=== PATIENT | male | born 1960 | race Caucasian/White ===

== ENCOUNTER 2017-11-17 06:14 | Inpatient (IN) | payer MEDICAID, SELFPAY ==
[2017-11-17] VITALS (16 sets, daily range): BP systolic 106–201; BP diastolic 55–130; PULSE 66–88; RESP 10–21; TEMP 35.9–36.7; O2SAT 97–100; BMI 18.9; BMI 17.2
--- NOTE | 2017-11-17 06:34 | EKG12_ITS ---
Test Reason : CP Blood Pressure : / mmHG Vent. Rate : 077 BPM Atrial Rate : 416 BPM P-R Int : 000 ms QRS Dur : 108 ms QT Int : 440 ms P-R-T Axes : 000 002 083 degrees QTc Int : 497 ms Atrial fibrillation with premature ventricular or aberrantly conducted complexes Voltage criteria for left ventricular hypertrophy ST & T wave abnormality, consider lateral ischemia Prolonged QT Abnormal ECG Confirmed by LOBITO CANTRELL, MARIA ISABEL ([id number]), news copy editor DEE BONILLA ([id number]) on 11/19/2017 4:03:51 PM Referred By: CLAYTON Confirmed By:MARIA ISABEL ROBIN MD
[2017-11-17] MEDS: Aspirin 81 MG TAB.CHEW 324 MG PO (06:38)
[2017-11-17] MEDS: 0.9% Normal Saline 1,000 ML 150 ML IV (06:43)
--- NOTE | 2017-11-17 06:45 | RAD_ITS ---
STUDY: X-RAY CHEST REASON FOR EXAM: Male, 56 years old. Chest pain TECHNIQUE: Single AP portable view of the chest. COMPARISON: December 08, 2015 FINDINGS: There is hyperinflation of the lungs consistent with chronic obstructive lung disease (COPD). There is no demonstrated pleural abnormality. There is moderate cardiac enlargement. There is a prosthetic cardiac valve most likely an aortic valve. Normal mediastinum and jon. Normal visualized pulmonary arteries. Normal visualized aortic arch and descending thoracic aorta. There is demineralization of the osseous structures. There is degenerative osteoarthritis of the bilateral shoulders. There is no demonstrated abnormality of the visualized soft tissue structures of the upper abdomen. RAD/Chest 1 View (Portable) IMPRESSION: Moderate cardiomegaly. COPD. Electronically Signed: Hernando Chavez MD at 7:45 EST Tel , Service support ,
--- NOTE | 2017-11-17 06:45 | EKG12_ITS ---
Test Reason : CP Blood Pressure : / mmHG Vent. Rate : 071 BPM Atrial Rate : 375 BPM P-R Int : 000 ms QRS Dur : 112 ms QT Int : 448 ms P-R-T Axes : 000 007 088 degrees QTc Int : 486 ms Atrial fibrillation Premature ventricular complexes Left ventricular hypertrophy with repolarization abnormality Prolonged QT Abnormal ECG Confirmed by LOBITO CANTRELL, MARIA ISABEL ([id number]), online editor DEE BONILLA ([id number]) on 11/19/2017 4:04:15 PM Referred By: CLAYTON Confirmed By:MARIA ISABEL ROBIN MD
[2017-11-17 06:50] LABS: Absolute Lymphocyte Count 2.67 X10^3/ul (0.83-4.51); Absolute Neutrophil Count 5.4 X10^3/uL (2.0-7.7); Basophil# 0.04 X10^3/uL; Basophil% 0.5 % (0-1); Eosinophil# 0.13 X10^3/uL; Eosinophils% 1.5 % (0-5); Hematocrit 44.1 % (40-54); Hemoglobin 14.9 g/dl (13.0-16.5); Lymphocyte # 2.67 X10^3/ul (4.0); Lymphocyte % 30.4 % (19-41); Mean Corp Hgb Conc 33.8 g/gl (32-36); Mean Corpuscular Hgb 32.4 pg (27.0-32.0); Mean Corpuscular Volume 95.9 fL (80-94); Mean Platelet Vol. 9.6 fl (6.2-12.0); Monocyte# 0.53 X10^3/uL; Neutrophil % 61.4 % (47-70); Platelet Count 312 K/mm3 (150-450); RBC Distribution Width CV 13.9 % (11.6-14.6); RBC Distribution Width SD 46.9 fl (35.1-43.9); White Blood Count 8.8 K/mm3 (4.4-11.0)
[2017-11-17 07:02] LABS: Anion Gap 8 (5-15); BUN 22 mg/dL (7-18); BUN/Creat Ratio 21.4 RATIO (10-20); Calcium,Total 8.9 mg/dL (8.5-10.1); Chloride 107 mmol/L (98-107); Creatinine, Serum 1.03 mg/dL (0.70-1.30); EST Glomerular Filtration Rate 79 mL/min (>60); Est Glom Filt Rate - Afr Amer 96 mL/min (>60); Estimated Creatinine Clearance 67.73 ml/min; Glucose 93 mg/dL (74-106); Potassium 4.2 mmol/L (3.5-5.1); Sodium Level 141 mmol/L (136-145)
--- NOTE | 2017-11-17 07:02 | ED.VISSUMM ---
- ER Visit Summary Date of Service: 11/17/17 Chief Complaint: Chest pain History of Present Illness: The patient is a 56 M presenting with 2 hours of nonpleuritic chest discomfort that woke him up from sleep. Feels like heaviness and pressure substernal, radiating to both upper extremities. Mild dyspnea, no associated nausea, lightheadedness, diaphoresis. History of an CO but has never had this discomfort before. He had a mitral valve repair or replacement in 2012, and was scheduled for a routine stress test 2 days from now, he thinks it will be the first he has had since then. He has a history of atrial fibrillation, he has never felt himself either in or out of it. He is on Xarelto for that, and takes aspirin which he has not taken yet today. He took Viagra last night less than 12 hours ago. Physical Examination: Hypertensive at 201/121, otherwise his vital signs are normal and his pulse ox is 100 on room air. He appears uncomfortable but in no acute distress. His heart is irregularly irregular without tachycardia. No audible murmur. Lungs are clear to auscultation, diminished throughout consistent with his COPD. No JVD. No pedal edema or calf tenderness. Equal bilateral 2+/4 radial pulses. Abdomen benign. There is a horizontal surgical scar in the supraumbilical area from a remote ex lap. Test Results: EKG shows rate controlled A. fib in the 70s with frequent PVCs, a normal axis, and [address] depression in V4 through V6. There is no reciprocal ST elevation. Chest x-ray with borderline cardiomegaly otherwise clear. Emergency Department Course and Treatment: Patient is high risk for coronary lesion due to a TAMAR score of 4 (5 if elevated cardiac markers), his EKG changes along with his history are concerning for unstable angina, possibly hypertensive emergency. I anticipate admission. Nitroglycerin not given since he recently took Viagra. Initially given hydralazine as a one-time dose, in addition to morphine, aspirin, and IV fluids. Checked out to oncoming emergency physician for final disposition and reevaluation. Treatment Plan: [] Disposition: [] Impression: Unstable angina This note was generated with [employer] dictation software. It may contain incorrect words, spelling, and punctuation that were not noted in review of the chart prior to signing <Kevin Snell - Last Filed: 11/17/17 07:08> - ER Visit Summary Addendum: This patient was checked out to me by Dr. Snell with labs pending. Test Results: CBC is normal. Chem-7 is remarkable for a BUN of 22. Initial troponin is 0.04. Chest x-ray shows cardiomegaly. Emergency Department Course and Treatment: Patient was given aspirin p.o. He received a dose of morphine with no relief. He was then given Dilaudid IV and is resting comfortably. Treatment Plan: The patient will be discussed with the hospitalist. He will be admitted for further evaluation and treatment. Disposition: Admitted in improved condition. Impression: 1. Unstable angina. 2. Coagulopathy on Xarelto. 3. TAMAR score 4. This note was generated with [employer] software. It may contain incorrect words, spelling, and punctuation that were not noted in review of the chart prior to signing <Audie Lee - Last Filed: 11/17/17 08:42> ED Disposition <Kevin Snell - Last Filed: 11/17/17 07:08> <Audie Lee - Last Filed: 11/17/17 08:42> - Plan for ED Patient: Chief Complaint: Chest Pain Referrals: Rian Metz MD [Primary Care Provider] -
--- NOTE | 2017-11-17 07:08 | ED.DCSUM_ITS ---
- ER Visit Summary Date of Service: 11/17/17 Chief Complaint: Chest pain History of Present Illness: The patient is a 56 M presenting with 2 hours of nonpleuritic chest discomfort that woke him up from sleep. Feels like heaviness and pressure substernal, radiating to both upper extremities. Mild dyspnea, no associated nausea, lightheadedness, diaphoresis. History of an [place] but has never had this discomfort before. He had a mitral valve repair or replacement in 2012, and was scheduled for a routine stress test 2 days from now , he thinks it will be the first he has had since then. He has a history of atrial fibrillation, he has never felt himself either in or out of it. He is on Xarelto for that, and takes aspirin which he has not taken yet today. He took Viagra last night less than 12 hours ago. Physical Examination: Hypertensive at 201/121, otherwise his vital signs are normal and his pulse ox is 100 on room air. He appears uncomfortable but in no acute distress. His heart is irregularly irregular without tachycardia. No audible murmur. Lungs are clear to auscultation, diminished throughout consistent with his COPD. No JVD. No pedal edema or calf tenderness. Equal bilateral 2+/4 radial pulses. Abdomen benign. There is a horizontal surgical scar in the supraumbilical area from a remote ex lap. Test Results: EKG shows rate controlled A. fib in the 70s with frequent PVCs, a normal axis, and [address] depression in V4 through V6. There is no reciprocal ST elevation. Chest x-ray with borderline cardiomegaly otherwise clear. Emergency Department Course and Treatment: Patient is high risk for coronary lesion due to a TAMAR score of 4 (5 if elevated cardiac markers), his EKG changes along with his history are concerning for unstable angina, possibly hypertensive emergency. I anticipate admission. Nitroglycerin not given since he recently took Viagra. Initially given hydralazine as a one-time dose, in addition to morphine, aspirin, and IV fluids. Checked out to oncoming emergency physician for final disposition and reevaluation. Treatment Plan: [] Disposition: [] Impression: Unstable angina This note was generated with [employer] dictation software. It may contain incorrect words, spelling, and punctuation that were not noted in review of the chart prior to signing <Kevin Snell - Last Filed: 11/17/17 07:08> - ER Visit Summary Addendum: This patient was checked out to me by Dr. Snell with labs pending. Test Results: CBC is normal. Chem-7 is remarkable for a BUN of 22. Initial troponin is 0.04. Chest x-ray shows cardiomegaly. Emergency Department Course and Treatment: Patient was given aspirin p.o. He received a dose of morphine with no relief. He was then given Dilaudid IV and is resting comfortably. Treatment Plan: The patient will be discussed with the hospitalist. He will be admitted for further evaluation and treatment. Disposition: Admitted in improved condition. Impression: 1. Unstable angina. 2. Coagulopathy on Xarelto. 3. TAMAR score 4. This note was generated with [employer] software. It may contain incorrect words, spelling, and punctuation that were not noted in review of the chart prior to signing <Audie Lee - Last Filed: 11/17/17 08:42> ED Disposition <Kevin Snell - Last Filed: 11/17/17 07:08> <Audie Lee - Last Filed: 11/17/17 08:42> - Plan for ED Patient: Chief Complaint: Chest Pain Referrals: Rian Metz MD [Primary Care Provider] -
[2017-11-17 07:34] LABS: POSITIVE COUNT NO; POSITIVE DIFFERENTIAL NO; POSITIVE MORPHOLOGY NO
[2017-11-17] MEDS: HYDROmorphone 1 MG/ML Syringe IV (08:15)
[2017-11-17] MEDS: 0.45% Normal Saline 1,000 ML 100 ML IV ×2 (10:12→18:21)
[2017-11-17 10:48] LABS: AST(SGOT) 35 U/L (15-37); Alanine Aminotransfer ALT/SGPT 32 U/L (16-61); Albumin, Serum 4.4 g/dL (3.2-5.0); Alkaline Phosphatase 109 U/L (45-117); Bilirubin, Direct 0.08 mg/dL (0.00-0.30); Cholesterol 189 mg/dL (200); Globulin 3.6 g/dL (2.2-4.2); High Density Lipoprotein 45 mg/dL; Magnesium 2.1 mg/dL (1.6-2.6); Triglycerides 163 mg/dL; Very Low Density Lipoprotein 33 mg/dL (5-40)
[2017-11-17] MEDS: Rivaroxaban 20 MG Tablet PO (11:13)
[2017-11-17] MEDS: Lisinopril 10 MG Tablet PO ×2 (11:13→22:14)
[2017-11-17] MEDS: amLODIPine 5 MG Tablet PO ×2 (11:13→22:14)
[2017-11-17] MEDS: Aspirin E.C. 81 MG Tablet PO ×2 (11:14→22:15)
--- NOTE | 2017-11-17 11:19 | EKG12_ITS ---
Test Reason : CP Blood Pressure : / mmHG Vent. Rate : 064 BPM Atrial Rate : 080 BPM P-R Int : 000 ms QRS Dur : 108 ms QT Int : 438 ms P-R-T Axes : 000 -05 -72 degrees QTc Int : 451 ms Atrial fibrillation Voltage criteria for left ventricular hypertrophy Nonspecific ST and T wave abnormality Abnormal ECG When compared with ECG of 17-NOV-2017 20:12, MANUAL COMPARISON REQUIRED, DATA IS UNCONFIRMED Confirmed by LOBITO CANTRELL, MARIA ISABEL ([id number]), advertising editor DEE BONILLA ([id number]) on 11/20/2017 1:44:38 PM Referred By: Confirmed By:MARIA ISABEL ROBIN MD
--- NOTE | 2017-11-17 11:40 | PCM.HP.STD ---
Problem List (1) H/O mitral valve repair Status: Chronic (2) COPD (chronic obstructive pulmonary disease) Status: Chronic (3) Chronic back pain Status: Chronic (4) Hyperlipidemia Status: Chronic (5) Hypertension Status: Chronic (6) CAD (coronary artery disease) Status: Chronic (7) CVA (cerebral vascular accident) Status: Chronic (8) Atrial fibrillation Status: Chronic History of Present Illness Date of Admission: 11/17/17 Chief Complaint: Chest pain The patient is a 56 year old M who presents with chest pain which woke him up this morning with pain radiation to his left arm. He states pain was severe, pressure like in nature and reports associated shortness of breath, diaphoresis, dizziness. His girlfriend at bedside states patient was very dusky. Girlfriend is a Nurse Practitioner and states she checked his vital signs this morning during symptoms and noted that his blood pressure was very high and pulse was in the 40s. Patient does not take nitro due to using Viagra. Patient follows with Dr. Segura, [facility]. He has history of [place] with stent X1 and mitral valve repair with annular ring in April 2013 in [place]. Patient was scheduled for stress test and echocardiogram this coming Saturday as ordered by Dr. Segura. He has a past medical history of CAD status post PCI, history of mitral valve repair, COPD, hyperlipidemia, hypertension, CVA, chronic atrial fibrillation on anticoagulation with Xarelto, chronic back pain, obstructive sleep apnea, tobacco dependence. Past Medical History Past Medical History (Chronic Problems): Chronic Problems H/O mitral valve repair (Chronic) COPD (chronic obstructive pulmonary disease) (Chronic) Chronic back pain (Chronic) Hyperlipidemia (Chronic) Hypertension (Chronic) CAD (coronary artery disease) (Chronic) CVA (cerebral vascular accident) (Chronic) Atrial fibrillation (Chronic) Allergies No Known Allergies Allergy (Verified 11/17/17 06:43) Home Medications: Ambulatory Orders Medication Instructions Recorded Amlodipine Besylate 10 mg PO DAILY 12/09/15 Carvedilol 12.5 tab PO BID 12/09/15 Cyclobenzaprine [Flexeril] 10 mg PO TID PRN PRN 11/17/17 Lisinopril [Zestril] 10 mg PO DAILY 11/17/17 Rivaroxaban [Xarelto] 20 mg PO DAILY 11/17/17 Trazodone HCl [Desyrel] 50 mg PO QHS 11/17/17 Surgical History: - - Open heart surgery w/ MV repair, Catheterization w/ stent, R shoulder surgeries fall with fracture Psychiatric History: No pertinent psych hx Lives: Spouse/ Significant Other Smoking Status: Current every day smoker Tobacco Use: Cigarettes Alcohol: Occasional Drugs: None - *Family History Maternal History Items: - - pulmonary embolus after a fractured ankle Paternal History Items: - - father had a stroke Review of Systems Constitutional: Reports: Chills. Denies: Fever, Weight Change, Fatigue HEENT: Denies: Head Aches, Sinus Congestion, Sinus Drainage Cardiovascular: Reports: Chest Pain. Denies: Edema, Palpitations, Syncope Respiratory: Reports: Shortness of Breath - With chest pain. Denies: Cough Gastrointestinal: Denies: Abdominal Pain, Nausea, Vomiting Genitourinary: Denies: Dysuria Musculoskeletal: Reports: - - Left arm pain associated with chest pain Skin: Denies: Rash, Wounds Neurological: Denies: Numbness, Tingling, Focal weakness Psychiatric: Denies: Anxiety, Depression, Homicidal Ideations, Suicidal Ideations Hematologic/ Lymphatic: Denies: Easy Bruising, Easy Bleeding VTE Information - Inpt Only VTE Present on Admission: No VTE Mechan Device Prophylaxis: None VTE Pharm Prophylaxis ordered?: Yes - Physical Exam General: Alert, Oriented x3, Cooperative, No apparent distress HEENT: Atraumatic, PERRLA, EOMI, Normocephalic Neck: Supple, No JVD, Negative Carotid Bruits Lungs: Clear to auscultation, Diminished Cardiovascular: Normal S1, Normal S2, Murmur, - - A.fib, rate controlled. Abdomen: Bowel Sounds Present, Soft, Non Tender, Non-Distended Extremities: No clubbing, No cyanosis, No edema, Capillary Refill Less than 3 Seconds Skin: No rashes, No breakdown Musculoskeletal: No Tenderness to Palpation of Joints or Extremities Neurological: Cranial nerves II-XII grossly intact, Neuro grossly intact Psych/Mental Status: Normal Affect, Appropriate Vital Signs Temp Pulse Resp BP Pulse Ox 97.9 F 67 16 163/88 H 100 11/17/17 09:41 11/17/17 09:41 11/17/17 09:41 11/17/17 09:41 11/17/17 09:41 Oxygen Delivery Method Room Air Weight: 59.4 kg Body Mass Index (BMI) 17.2 Laboratory Tests Past 24 Hrs 11/17/ 10:06 Troponin I 2.08 H* Assessment/Plan 1. Unstable angina/NSTEMI-troponin 0 0.04, 2.08. Chest pain mostly resolved. Cardiology consulted. Continue aspirin, Plavix, beta-carola, statin. No nitrates given patient took Viagra last evening around 7 PM. Echocardiogram September 2013 showed an ejection fraction of 55%, apical false tendon noted, mild to moderate transvalvular insufficiency of the mitral valve, mild aortic valve thickening, mild tricuspid valve insufficiency, RVSP estimated to be 29 mmHg. Patient was scheduled for repeat echocardiogram and stress test through Dr. Segura this Saturday. Repeat echocardiogram. Cardiology consulted. Plan for cardiac catheterization tomorrow morning. Repeat EKG with new onset of chest pain. Trend enzymes. 2. CAD status post [place] with stent ?1 and mitral valve repair with annular ring-continue aspirin, statin, Plavix, beta-carola. Cardiac catheterization tomorrow as noted above. 3. Chronic atrial fibrillation-continue carvedilol and Xarelto regimen. Rate controlled. 4. History of CVA-continue aspirin, statin. 5. Hypertension-blood pressure elevated on admission systolically greater than 200. Now improved. Continue home regimen of amlodipine, lisinopril, carvedilol. 6. Hyperlipidemia-not on statin prior to admission. Statin added given history of CVA, CAD. Lipid panel within normal limits. 7. Chronic COPD-continues to smoke 1.5 pack per day. Recently started on Tudorza by PCP. Recommend outpatient follow-up with pulmonary medicine. Albuterol as needed and scheduled duonebs. 7. Obstructive sleep apnea-sleep study August 2014 noted severe sleep apnea. Does not appear patient follows up for titration study. 8. Chronic back pain-continue as needed Flexeril regimen. Patient reports recent increase in back pain. 9. Tobacco dependence-encouraged smoking cessation. Nicotine replacement patch. DVT prophylaxis-Xarelto This patient was seen by MARCOS Hillman under the supervision of Dr. Sun.
--- NOTE | 2017-11-17 11:51 | HP.PCM_ITS ---
Problem List (1) H/O mitral valve repair Status: Chronic (2) COPD (chronic obstructive pulmonary disease) Status: Chronic (3) Chronic back pain Status: Chronic (4) Hyperlipidemia Status: Chronic (5) Hypertension Status: Chronic (6) CAD (coronary artery disease) Status: Chronic (7) CVA (cerebral vascular accident) Status: Chronic (8) Atrial fibrillation Status: Chronic History of Present Illness Date of Admission: 11/17/17 Chief Complaint: Chest pain The patient is a 56 year old M who presents with chest pain which woke him up this morning with pain radiation to his left arm. He states pain was severe, pressure like in nature and reports associated shortness of breath, diaphoresis , dizziness. His girlfriend at bedside states patient was very dusky. Girlfriend is a Nurse Practitioner and states she checked his vital signs this morning during symptoms and noted that his blood pressure was very high and pulse was in the 40s. Patient does not take nitro due to using Viagra. Patient follows with Dr. Segura, [facility]. He has history of [place] with stent X1 and mitral valve repair with annular ring in April 2013 in [place]. Patient was scheduled for stress test and echocardiogram this coming Saturday as ordered by Dr. Segura. He has a past medical history of CAD status post PCI, history of mitral valve repair, COPD, hyperlipidemia, hypertension, CVA, chronic atrial fibrillation on anticoagulation with Xarelto, chronic back pain, obstructive sleep apnea, tobacco dependence. Past Medical History Past Medical History (Chronic Problems): Chronic Problems H/O mitral valve repair (Chronic) COPD (chronic obstructive pulmonary disease) (Chronic) Chronic back pain (Chronic) Hyperlipidemia (Chronic) Hypertension (Chronic) CAD (coronary artery disease) (Chronic) CVA (cerebral vascular accident) (Chronic) Atrial fibrillation (Chronic) Allergies No Known Allergies Allergy (Verified 11/17/17 06:43) Home Medications: Ambulatory Orders Medication Instructions Recorded Amlodipine Besylate 10 mg PO DAILY 12/09/15 Carvedilol 12.5 tab PO BID 12/09/15 Cyclobenzaprine [Flexeril] 10 mg PO TID PRN PRN 11/17/17 Lisinopril [Zestril] 10 mg PO DAILY 11/17/17 Rivaroxaban [Xarelto] 20 mg PO DAILY 11/17/17 Trazodone HCl [Desyrel] 50 mg PO QHS 11/17/17 Surgical History: - - Open heart surgery w/ MV repair, Catheterization w/ stent , R shoulder surgeries fall with fracture Psychiatric History: No pertinent psych hx Lives: Spouse/ Significant Other Smoking Status: Current every day smoker Tobacco Use: Cigarettes Alcohol: Occasional Drugs: None - *Family History Maternal History Items: - - pulmonary embolus after a fractured ankle Paternal History Items: - - father had a stroke Review of Systems Constitutional: Reports: Chills. Denies: Fever, Weight Change, Fatigue HEENT: Denies: Head Aches, Sinus Congestion, Sinus Drainage Cardiovascular: Reports: Chest Pain. Denies: Edema, Palpitations, Syncope Respiratory: Reports: Shortness of Breath - With chest pain. Denies: Cough Gastrointestinal: Denies: Abdominal Pain, Nausea, Vomiting Genitourinary: Denies: Dysuria Musculoskeletal: Reports: - - Left arm pain associated with chest pain Skin: Denies: Rash, Wounds Neurological: Denies: Numbness, Tingling, Focal weakness Psychiatric: Denies: Anxiety, Depression, Homicidal Ideations, Suicidal Ideations Hematologic/ Lymphatic: Denies: Easy Bruising, Easy Bleeding VTE Information - Inpt Only VTE Present on Admission: No VTE Mechan Device Prophylaxis: None VTE Pharm Prophylaxis ordered?: Yes - Physical Exam General: Alert, Oriented x3, Cooperative, No apparent distress HEENT: Atraumatic, PERRLA, EOMI, Normocephalic Neck: Supple, No JVD, Negative Carotid Bruits Lungs: Clear to auscultation, Diminished Cardiovascular: Normal S1, Normal S2, Murmur, - - A.fib, rate controlled. Abdomen: Bowel Sounds Present, Soft, Non Tender, Non-Distended Extremities: No clubbing, No cyanosis, No edema, Capillary Refill Less than 3 Seconds Skin: No rashes, No breakdown Musculoskeletal: No Tenderness to Palpation of Joints or Extremities Neurological: Cranial nerves II-XII grossly intact, Neuro grossly intact Psych/Mental Status: Normal Affect, Appropriate Vital Signs Temp Pulse Resp BP Pulse Ox 97.9 F 67 16 163/88 H 100 11/17/17 09:41 11/17/17 09:41 11/17/17 09:41 11/17/17 09:41 11/17/17 09:41 Oxygen Delivery Method Room Air Weight: 59.4 kg Body Mass Index (BMI) 17.2 Laboratory Tests Past 24 Hrs 11/17/ 10:06 Troponin I 2.08 H* Assessment/Plan 1. Unstable angina/NSTEMI-troponin 0 0.04, 2.08. Chest pain mostly resolved. Cardiology consulted. Continue aspirin, Plavix, beta-carola, statin. No nitrates given patient took Viagra last evening around 7 PM. Echocardiogram September 2013 showed an ejection fraction of 55%, apical false tendon noted, mild to moderate transvalvular insufficiency of the mitral valve, mild aortic valve thickening, mild tricuspid valve insufficiency, RVSP estimated to be 29 mmHg. Patient was scheduled for repeat echocardiogram and stress test through Dr. Segura this Saturday. Repeat echocardiogram. Cardiology consulted. Plan for cardiac catheterization tomorrow morning. Repeat EKG with new onset of chest pain. Trend enzymes. 2. CAD status post [place] with stent ?1 and mitral valve repair with annular ring- continue aspirin, statin, Plavix, beta-carola. Cardiac catheterization tomorrow as noted above. 3. Chronic atrial fibrillation-continue carvedilol and Xarelto regimen. Rate controlled. 4. History of CVA-continue aspirin, statin. 5. Hypertension-blood pressure elevated on admission systolically greater than 200. Now improved. Continue home regimen of amlodipine, lisinopril, carvedilol. 6. Hyperlipidemia-not on statin prior to admission. Statin added given history of CVA, CAD. Lipid panel within normal limits. 7. Chronic COPD-continues to smoke 1.5 pack per day. Recently started on Tudorza by PCP. Recommend outpatient follow-up with pulmonary medicine. Albuterol as needed and scheduled duonebs. 7. Obstructive sleep apnea-sleep study August 2014 noted severe sleep apnea. Does not appear patient follows up for titration study. 8. Chronic back pain-continue as needed Flexeril regimen. Patient reports recent increase in back pain. 9. Tobacco dependence-encouraged smoking cessation. Nicotine replacement patch. DVT prophylaxis-Xarelto This patient was seen by MARCOS Hillman under the supervision of Dr. Sun.
--- NOTE | 2017-11-17 12:09 | CON.PCM_ITS ---
Reason for Consult Date of Consultation: 11/17/17 History of Present Illness: The patient is a 56 year old M with past medical history significant for coronary artery disease status post percutaneous intervention in 2012. He also has history of mitral valve repair. He presented to the emergency room with complaints of chest pain that woke him up from sleep this morning. Radiation to the left arm. Positive shortness of breath. Second troponin is elevated, ruling him in for non-ST elevation myocardial infarction. Presently, his discomfort has largely dissipated. [] Past Medical History Allergies/Adverse Reactions: Allergies No Known Allergies Allergy (Verified 11/17/17 06:43) Home Medications: Ambulatory Orders Medication Instructions Recorded Amlodipine Besylate 10 mg PO DAILY 12/09/15 Carvedilol 12.5 tab PO BID 12/09/15 Cyclobenzaprine [Flexeril] 10 mg PO TID PRN PRN 11/17/17 Lisinopril [Zestril] 10 mg PO DAILY 11/17/17 Rivaroxaban [Xarelto] 20 mg PO DAILY 11/17/17 Trazodone HCl [Desyrel] 50 mg PO QHS 11/17/17 Past Medical History (Chronic Problems): Chronic Problems H/O mitral valve repair (Chronic) COPD (chronic obstructive pulmonary disease) (Chronic) Chronic back pain (Chronic) Hyperlipidemia (Chronic) Hypertension (Chronic) CAD (coronary artery disease) (Chronic) CVA (cerebral vascular accident) (Chronic) Atrial fibrillation (Chronic) Surgical History: - - Open heart surgery w/ MV repair, Catheterization w/ stent , R shoulder surgeries fall with fracture Psychiatric History: No pertinent psych hx - *Family History Maternal History Items: - - pulmonary embolus after a fractured ankle Paternal History Items: - - father had a stroke Lives: Spouse/ Significant Other Smoking Status: Current every day smoker Tobacco Use: Cigarettes Alcohol: Occasional Drugs: None Review of Systems - Review of Systems General: Denies: Fever, Chills Cardiovascular: Reports: Chest Discomfort at Rest, Shortness of Breath at Rest, Claudication. Denies: Orthopnea, PND Respiratory: Reports: - - History of COPD Neurological: Reports: History of CVA. Denies: History of TIA Endocrine: Denies: Unexplained Weight Loss Hematologic/ Lymphatic: Denies: Easy Brusing, Easy Bleeding Subjectve: Comfortable. No apparent distress Objective: Vital Signs Temp Pulse Resp BP Pulse Ox 97.9 F 67 16 163/88 H 100 11/17/17 09:41 11/17/17 09:41 11/17/17 09:41 11/17/17 09:41 11/17/17 09:41 Oxygen Delivery Method Room Air Weight: 59.4 kg Body Mass Index (BMI) 17.2 General: Awake, Alert, Oriented x 3 HEENT: Atraumatic Oral: Moist Mucosa Neck: Supple Lungs: Clear to auscultation Cardiovascular: Normal S1, Normal S2 Abdomen: Bowel Sounds Present, Soft Extremities: No edema Neurological: No Focal Motor or Sensory Deficit, CN II-XII Intact Psych/Mental Status: Appropriate 11/17/17 10:06: Troponin I 2.08 H* Rhythm: Atrial fibrillation. Controlled ventricular response EKG: EKG shows atrial fibrillation. T-wave changes that could denote anterior ischemia ECHO: Stress Test: Cardiac Cath: PCI: CT Surgery: Holter monitor: EPS: PPM: CXR: Chest CT Scan: Assessment/Plan 1. Non-ST elevation myocardial infarction. Continue aspirin. Load with Plavix. Start on nitrates. Cardiac catheterization with coronary angiography was also recommended. Risks benefits and alternatives explained. He understands these and wishes to proceed. We will tentatively schedule him for tomorrow 2. History of coronary artery disease status post percutaneous intervention in 2012. See #1 above 3. Permanent atrial fibrillation. Ventricular rate controlled. Continue beta blockers. Hold Xarelto in anticipation of cardiac catheterization 4. History of mitral valve repair 5. Nicotine dependence. Counseled to quit 6. COPD 7. History of peripheral arterial disease 8. Hypertension 9. History of dyslipidemia
[2017-11-17] MEDS: Clopidogrel Bisulfate 300 MG Tablet PO (12:22)
[2017-11-17] MEDS: Carvedilol 6.25 MG Tablet PO ×2 (14:27→21:55)
[2017-11-17] MEDS: Ipratropium/Albuterol Sulfate 3 ML AMPUL.NEB INHALATION ×2 (15:14→19:36)
--- NOTE | 2017-11-17 19:58 | EKG12_ITS ---
Test Reason : CP Blood Pressure : / mmHG Vent. Rate : 080 BPM Atrial Rate : 048 BPM P-R Int : 000 ms QRS Dur : 106 ms QT Int : 408 ms P-R-T Axes : 000 017 269 degrees QTc Int : 470 ms Atrial fibrillation Premature ventricular complexes Left ventricular hypertrophy with repolarization abnormality Abnormal ECG When compared with ECG of 17-NOV-2017 06:26, MANUAL COMPARISON REQUIRED, DATA IS UNCONFIRMED Confirmed by LOBITO CANTRELL, MARIA ISABEL ([id number]), sports editor DEE BONILLA ([id number]) on 11/20/2017 1:45:02 PM Referred By: Confirmed By:MARIA ISABEL ROBIN MD
--- NOTE | 2017-11-17 19:59 | NURSING ---
Pt c/o increased CP. STAT EKG ordered.
--- NOTE | 2017-11-17 20:18 | NURSING ---
Pt states he feels safe to get up to bathroom independently. Educated to call RN if feeling unsteady.
[2017-11-17] MEDS: 0.9% NaCl Peripheral Flush Adult/Peds IV (20:41)
--- NOTE | 2017-11-17 21:31 | EKG12_ITS ---
Test Reason : CP Blood Pressure : / mmHG Vent. Rate : 072 BPM Atrial Rate : 073 BPM P-R Int : 000 ms QRS Dur : 108 ms QT Int : 436 ms P-R-T Axes : 000 001 -77 degrees QTc Int : 477 ms Atrial fibrillation Voltage criteria for left ventricular hypertrophy Nonspecific T wave abnormality Prolonged QT Abnormal ECG When compared with ECG of 17-NOV-2017 06:26, MANUAL COMPARISON REQUIRED, DATA IS UNCONFIRMED Confirmed by LOBITO CANTRELL, MARIA ISABEL ([id number]), editor sound DEE BONILLA ([id number]) on 11/20/2017 1:45:25 PM Referred By: Confirmed By:MARIA ISABEL ROBIN MD
[2017-11-17] MEDS: Atorvastatin Calcium 40 MG Tablet PO (21:55)
--- NOTE | 2017-11-17 22:01 | NURSING ---
Dr. Mercer spoke on the phone with Dr. Reaves. Dr. Reaves gave this RN verbal order to start a Nitro gtt @ 10. global marketing coordinator notified as this RN is not trained to manage Nitro drips.
[2017-11-17] MEDS: Clopidogrel Bisulfate 75 MG Tablet PO (22:13)
--- NOTE | 2017-11-17 22:22 | PCM.PN.BLA ---
Progress Note Patient continues to have chest discomfort. He rates at 7/10. Emergent coronary angiography with possible revascularization offered. Increased risk of bleeding with Xarelto on board explained. Patient understands and wishes to proceed with angiography and possible revascularization.
--- NOTE | 2017-11-17 22:40 | NURSING ---
Report called to Aislinn in equipment operator/laborer/supervisor. Pt transported to equipment operator/laborer/supervisor by this RN, asphalt paving foreman, and a HEALTH PLAN ADVISOR. Update given to patient's girlfriend. She was directed to waiting room. labor trainer staff notified that pt SO is in waiting area.
[2017-11-17 23:08] LABS: Amphetamine Urine VISTA NEGATIVE (<1000 ng/mL); Barbiturate Urine VISTA POSITIVE (< 200 ng/mL); Benzodiazepine Urine VISTA NEGATIVE (< 200 ng/mL); Cocaine Urine VISTA NEGATIVE (< 300 ng/mL); Ecstacy Urine VISTA NEGATIVE (< 500 ng/mL); Methadone Urine VISTA NEGATIVE (< 300 ng/mL); PCP Urine VISTA NEGATIVE (< 25 ng/mL); THC Urine VISTA POSITIVE (< 50 ng/mL); Vista UDS pH Range 6
[2017-11-17 23:36] LABS: ACT Activated Clotting Time 180 sec (74-137)
--- NOTE | 2017-11-17 23:42 | PCM.PN.BLA ---
Progress Note Cardiac cath with coronary angiography done. Distal RPLV 100% LVEF 35% Medical treatment
[2017-11-18] VITALS (100 sets, daily range): BP systolic 103–193; BP diastolic 48–128; PULSE 51–86; RESP 10–27; TEMP 36.3–36.9; O2SAT 67–100
--- NOTE | 2017-11-18 00:10 | CL.I_ITS ---
Patient Name: ALEJANDRA PATRICIO Study Date: 11/17/2017 Performing: Valorie Reaves MD Ht: 73 inches 185 cm : 1960 Wt: 130.2 lbs 59 kg Age: 56 Gender: male BSA: 1.79 PROCEDURE(S) PERFORMED HB56-DUN/COR/LV [id number], CORONARY OR GRAFT, INITIAL VESSEL CLINICAL PROFILE AND CO-MORBIDITIES CAD Presentations: Non-STEMI. Symptom onset Date/Time: 11/17/2017 Time Not Available CONCLUSIONS 60-70% Mid RCA, iFR 0.97 100% distal RPLV with thrombus, small vessel Stent to Mid LAD patent 60% Prox D1 50% Prox LCX, Prox OM1 LVEF 35%; Posterior basal akinesis, Global hypokinesis RECOMMENDATIONS Medical management DESCRIPTION OF PROCEDURE The patient arrived to the procedure lab. The risks and benefits of the procedure as well as a full d escription of our services here and lack of surgical backup were fully explained to the patient and/o r their significant other prior to the catheterization. The Timeout was completed, verifying the andrew ect patient and procedure. The patient's procedural site was prepped and draped in the usual fashion. Local anesthetic was given subcutaneously to right radial region with Lidocaine 2%. Using a modified Seldinger technique, arterial access was obtained via the right radial artery, a 6Fr sheath was inse rted.. Left Coronary Artery selective angiography was performed in multiple views using a 5 Fr. 4.0 [place] catheter. Right Coronary Artery selective angiography was then performed in multiple views usin g a 5 Fr. 4.0 [place] catheter. Right Coronary Artery selective angiography was then performed in multi ple views using a 5 Fr. JR 4 catheter. Left Ventriculography was performed in KHAN projection using a 5 Fr. Pigtail catheter. LV to AO pullback pressures were then recorded JR 4 Guide catheter was inserted and engaged into the RCA. The FFR/iFR wire was inserted Pressures an d FFR/iFR were then recorded. iFR measurements were performed The FFR/iFR wire was then removed iFR R atio: 0.97. . The arterial sheath was pulled and a TR Band was applied for hemostasis, 18cc of air. CORONARY ANGIOGRAPHY DOMINANCE: Right Dominant LEFT HEART ASSESSMENT Left Ventricular Ejection Fraction: by LV Gram 35 % LVEDP: 17 mmHg Global Hypokinesis - Severe. Posterior Basal Akinesis LEFT MAIN: Angiographically normal LEFT ANTERIOR DECENDING ARTERY: Prox LAD 20%. Stent to Mid LAD patent; Prox D1 60% CIRCUMFLEX ARTERY: 40-50% Prox LCX; 50% Prox OM1 RIGHT CORONARY ARTERY: 60-70% Mid RCA; Prox RPLV 40%, dital RPLV 100% with thrombus VALVE FINDINGS: No MR. MV ring noted INTERVENTION INFORMATION LESION SITE: RCA (Mid) PROCEDURE: iFR Lesion Devices: [employer] Coronary FFR Wire [employer] 6 Fr JR4.0 100cm Guide Catheter COMPLICATIONS No Complications PROCEDURE MEDICATIONS Versed 1 mg IV Fentanyl 50 mcg IV Versed 1 mg IV Versed 2 mg IV Oxygen: 2 L/min via nasal cannula Heparin given IA 11/17/2017 22:53:20 Heparin 2000 unit(s) IV 11/17/2017 23:10:35 Nitro 200 mcg IC 11/17/2017 23:05:53 Nitro 200 mcg IC 11/17/2017 23:05:53 Nitro 200 mcg IC 11/17/2017 23:12:54 Verapamil 2.5mg, Ntg 100mcgs, 2000 units of Heparin given IA 11/17/2017 22:53:20 SUMMARY OF HEMODYNAMIC DATA Time AIR REST ECG 22:38:52 AO 178/111 (139) SA 22:54:47 LV 176/14, 17 22:58:54 AO 201/145 (165) 23:15:29 LV 146/13, 19 23:26:08 LV 145/12, 19 23:26:16 LVp 151/18, 24 23:28:17 AOp 160/98 (122) 23:28:22 Signed By Valorie Reaves MD On 11/18/2017 00:09:28 Valorie Reaves MD
[2017-11-18] MEDS: 0.9% Normal Saline 1,000 ML 75 ML IV (00:31)
--- NOTE | 2017-11-18 00:45 | NURSING ---
Report called to Natalia in ICU.
[2017-11-18] MEDS: 0.9% NaCl Peripheral Flush Adult/Peds IV ×5 (01:05→21:18)
[2017-11-18 01:55] LABS: M R Staph aureus DNA By PCR Negative (Negative); Probe Check PASS; Specimen Processing Control PASS
[2017-11-18 04:29] LABS: Hematocrit 35.9 % (40-54); Hemoglobin 12.2 g/dl (13.0-16.5); Mean Corpuscular Hgb 32.3 pg (27.0-32.0); Mean Platelet Vol. 8.5 fl (6.2-12.0); Platelet Count 260 K/mm3 (150-450); RBC Distribution Width CV 13.4 % (11.6-14.6); RBC Distribution Width SD 44.3 fl (35.1-43.9); Red Blood Count 3.78 M/mm3 (4.6-6.2); White Blood Count 8.4 K/mm3 (4.4-11.0)
[2017-11-18 04:33] LABS: International Normalized Ratio 1.1; Prothrombin Time (Protime)PT. 14.2 SECONDS (11.7-14.9)
[2017-11-18 04:38] LABS: Scan Indicated on CBC? Y/N NO
[2017-11-18 04:45] LABS: Anion Gap 10 (5-15); BUN 15 mg/dL (7-18); Calcium,Total 7.8 mg/dL (8.5-10.1); Chloride 107 mmol/L (98-107); Creatinine, Serum 0.75 mg/dL (0.70-1.30); EST Glomerular Filtration Rate 114 mL/min (>60); Est Glom Filt Rate - Afr Amer 138 mL/min (>60); Glucose 97 mg/dL (74-106); Potassium 3.3 mmol/L (3.5-5.1); Sodium Level 141 mmol/L (136-145)
--- NOTE | 2017-11-18 05:55 | ECHOD_ITS ---
Left Ventricle Moderately dilated left ventricle. Mild concentric left ventricular hypertrophy. Moderate global left ventricular systolic dysfunction. The estimated ejection fraction is 39 %. Unable to assess diastolic dysfunction. There is moderate global hypokinesis of the left ventricle. Right Ventricle Normal RV size. Normal systolic function. Atria The left atrium is severely enlarged. Normal right atrium. Mitral Valve Mild diffuse mitral valve thickening. Moderate (2+) mitral valve insufficiency. An annuloplasty ring is noted in the mitral position. Tricuspid Valve Normal tricuspid valve. Mild (1+) tricuspid valve insufficiency. Pulmonary artery systolic pressure is 25 mmHg. Aortic Valve Trisinus/trileaflet aortic valve. Normal aortic valve. Mild (1+) eccentric aortic valve insufficiency. Pulmonic Valve Normal pulmonic valve. Great Vessels Normal aortic root. The pulmonary artery is normal size. Normal inferior vena cava. Pericardium/Pleural No pericardial effusion. MMode/2D Measurements & Calculations LVIDd: 6.1 cm IVSd: 1.2 cm Ao root diam: 3.5 cm LVIDs: 5.0 cm LVPWd: 1.3 cm LA dimension: 5.3 cm RVDd: 3.0 cm FS: 19.2 % LAV(MOD-bp): 199.0 ml LA A4 area: 38.6 cm2 RA A4 area: 18.0 cm2 LAV(MOD-bp) Indexed: 111.1 ml/m2 LAV(MOD-sp2): 223.3 ml LAV(MOD-sp4): 165.3 ml Doppler Measurements & Calculations MV E max cedric: 114.8 cm/sec Lat Peak E' Cedric: 4.8 cm/sec Med Peak E' Cedric: 3.8 cm/sec E/E' lat: 23.9 E/E' med: 29.9 MV V2 max: 156.4 cm/sec Ao V2 max: 137.0 cm/sec AI max cedric: 522.8 cm/sec MV max P.8 mmHg Ao max P.5 mmHg AI max P.6 mmHg MV V2 mean: 85.6 cm/sec Ao V2 mean: 108.0 cm/sec AI dec slope: 218.8 cm/sec2 MV mean P.6 mmHg Ao mean P.0 mmHg AI P1/2t: 699.8 msec MV V2 VTI: 41.8 cm Ao V2 VTI: 23.8 cm LV V1 max: 110.8 cm/sec PA V2 max: 101.0 cm/sec TR max cedric: 226.1 cm/sec LV V1 max P.9 mmHg TR max P.5 mmHg Interpretation Summary Moderately dilated left ventricle. Mild concentric left ventricular hypertrophy. Moderate global left ventricular systolic dysfunction. The estimated ejection fraction is 39 %. Unable to assess diastolic dysfunction. Moderate (2+) mitral valve insufficiency. An annuloplasty ring is noted in the mitral position. Mild (1+) tricuspid valve insufficiency. Compared to the previous the LV function is mildy reduced and the MR is worse Ordering Physician: Dayanna Sun
--- NOTE | 2017-11-18 05:55 | EKG12_ITS ---
Test Reason : AM EKG Blood Pressure : / mmHG Vent. Rate : 062 BPM Atrial Rate : 096 BPM P-R Int : 000 ms QRS Dur : 106 ms QT Int : 484 ms P-R-T Axes : 000 -05 -72 degrees QTc Int : 491 ms Atrial fibrillation Nonspecific ST and T wave abnormality Prolonged QT Abnormal ECG When compared with ECG of 17-NOV-2017 06:26, MANUAL COMPARISON REQUIRED, DATA IS UNCONFIRMED Confirmed by LOBITO CANTRELL, MARIA ISABEL ([id number]), marketing editor DEE BONILLA ([id number]) on 11/20/2017 1:48:32 PM Referred By: MAXX Confirmed By:MARIA ISABEL ROBIN MD
[2017-11-18] MEDS: Ipratropium/Albuterol Sulfate 3 ML AMPUL.NEB INHALATION ×4 (06:46→19:34)
--- NOTE | 2017-11-18 08:35 | PCM.PN.HOSP ---
Patient Problems: Active and Suspected Problems Non-STEMI (non-ST elevated myocardial infarction) (Acute) Subjective: Underwent a left heart catheterization the fourth. No stents were placed. Patient has had chest pain but has been relieved with nitroglycerin drip. Is complaining of headache now with the nitroglycerin drip as well. Vitals/I&O's: Vital Signs Temp Pulse Resp BP Pulse Ox 36.6 C 60 12 148/87 H 100 11/18/17 04:00 11/18/17 07:00 11/18/17 07:00 11/18/17 07:00 11/18/17 07:00 Oxygen Flow Rate 2 Oxygen Delivery Method Room Air Weight: 60.3 kg Intake and Output for Last 24 Hours 11/16/17 11/17/17 11/18/17 23:59 23:59 23:59 Intake Total 1627 / 1687 749 / 749 Output Total 50 / 50 1675 / 1675 Balance 1577 / 1637 -926 / -926 General: Alert, Cooperative, No apparent distress, Well developed, Well nourished HEENT: Atraumatic, Normocephalic Neck: No Nodes, Thyroid Normal Size and Texture Lungs: Clear to auscultation, Normal air movement, No rhonchi, No wheeze Cardiovascular: Regular rate, Regular Rhythm, Normal S1, Normal S2, No murmurs Abdomen: Bowel Sounds Present, Soft, Non Tender, Non-Distended, No Hepato-splenomegaly Extremities: No edema, No Calf Tenderness Skin: No rashes, No breakdown Musculoskeletal: No Tenderness to Palpation of Joints or Extremities, No Muscle Wasting Psych/Mental Status: Normal Affect, Appropriate Laboratory Results 11/17/17 20:30: Troponin I 37.80 H* 11/17/17 22:25: Urine Opiates Screen POSITIVE H, Urine Methadone Screen NEGATIVE, Ur Barbiturates Screen POSITIVE H, Ur Phencyclidine Scrn NEGATIVE, Ur Amphetamines Screen NEGATIVE, U Methamphetamin-MDMA NEGATIVE, U Benzodiazepines Scrn NEGATIVE, Urine Cocaine Screen NEGATIVE, U Cannabinoids Screen POSITIVE H, Ur Drug Screen Comment 11/17/17 23:26: Activated Clotting Time 180 H 11/18/17 00:15: MRSA (PCR) Negative 11/18/17 04:15: WBC 8.4, RBC 3.78 L, Hgb 12.2 L, Hct 35.9 L, MCV 95.0 H, MCH 32.3 H, MCHC 34.0, RDW 13.4, RDW Differential 44.3 H, Plt Count 260, MPV 8.5 11/18/17 04:15: PT 14.2, INR 1.1 11/18/17 04:15: Sodium 141, Potassium 3.3 L, Chloride 107, Carbon Dioxide 24.0, Anion Gap 10, BUN 15, Creatinine 0.75, Estim Creat Clear Calc 92.40, Est GFR (MDRD) Af Amer 138, Est GFR (MDRD) Non-Af 114, BUN/Creatinine Ratio 20.0, Glucose 97, Calcium 7.8 L Current Medications Acetaminophen (Tylenol) 1,000 mg PO Q8H PRN PRN PRN Reason: PAIN Albuterol Sulfate (Ventolin Aerosols) 2.5 mg INHALATION Q2H PRN PRN PRN Reason: SHORTNESS OF BREATH Albuterol/Ipratropium (Duoneb) 3 ml INHALATION Q4HWA.RT [facility] Last Admin: 11/18/17 06:46 Dose: 3 ml Amlodipine Besylate (Norvasc) 5 mg PO DAILY [facility] Last Admin: 11/17/17 22:14 Dose: 5 mg Aspirin (Ecotrin) 81 mg PO DAILY@0800 [facility] Last Admin: 11/17/17 22:15 Dose: 81 mg Atorvastatin Calcium (Lipitor) 40 mg PO QHS [facility] Last Admin: 11/17/17 21:55 Dose: 40 mg Atropine Sulfate () 0.5 mg IV UD PRN PRN Reason: HR <50 bpm Carvedilol (Coreg) 12.5 mg PO BID [facility] Clopidogrel Bisulfate (Plavix) 75 mg PO DAILY [facility] Last Admin: 11/17/17 22:13 Dose: 75 mg Nitroglycerin/Dextrose 25 mg/ (N/A) 250 mls @ 6 mls/hr IV .[id number] [facility] PRN Reason: 10 MCG/MIN Last Admin: 11/18/17 06:28 Dose: 6 mls/hr Lisinopril (Zestril) 10 mg PO DAILY [facility] Last Admin: 11/17/17 22:14 Dose: 10 mg Morphine Sulfate (Morphine) 2 mg IV Q3H PRN PRN PRN Reason: SEVERE PAIN (6-10/10) Last Admin: 11/18/17 07:57 Dose: 2 mg Nicotine (Nicoderm Cq (Pbkc)) 21 mg TRANSDERM. DAILY [facility] Last Admin: 11/17/17 11:10 Dose: 21 mg Rivaroxaban (Xarelto) 20 mg PO DAILY [facility] Last Admin: 11/17/17 11:13 Dose: 20 mg Sodium Chloride () 5 - 30 ml IV UD PRN PRN Reason: SALINE FLUSH Last Admin: 11/18/17 07:59 Dose: 10 ml Sodium Chloride () 500 ml IV BOLUS PRN PRN Reason: VASO-VAGAL PROTOCOL Spironolactone (Aldactone) 12.5 mg PO DAILY [facility] Assessment/Plan Active and Suspected Problems Non-STEMI (non-ST elevated myocardial infarction) (Acute) 1. Non-ST elevation myocardial infarction No stents were placed. Medical management. On carvedilol, aspirin, Plavix and lisinopril Currently on a nitroglycerin drip 2. Ischemic cardiomyopathy Ejection fraction 35% Echocardiogram currently underway Medical management 3. Chronic atrial fibrillation Anticoagulated with Xarelto 4. VT prophylaxis: Patient is anticoagulated. Code Visit Inpatient E&M: 94131 Subs Hosp L2
--- NOTE | 2017-11-18 08:40 | PN_ITS ---
Patient Problems: Active and Suspected Problems Non-STEMI (non-ST elevated myocardial infarction) (Acute) Subjective: Underwent a left heart catheterization the fourth. No stents were placed. Patient has had chest pain but has been relieved with nitroglycerin drip. Is complaining of headache now with the nitroglycerin drip as well. Vitals/I&O's: Vital Signs Temp Pulse Resp BP Pulse Ox 36.6 C 60 12 148/87 H 100 11/18/17 04:00 11/18/17 07:00 11/18/17 07:00 11/18/17 07:00 11/18/17 07:00 Oxygen Flow Rate 2 Oxygen Delivery Method Room Air Weight: 60.3 kg Intake and Output for Last 24 Hours 11/16/17 11/17/17 11/18/17 23:59 23:59 23:59 Intake Total 1627 / 1687 749 / 749 Output Total 50 / 50 1675 / 1675 Balance 1577 / 1637 -926 / -926 General: Alert, Cooperative, No apparent distress, Well developed, Well nourished HEENT: Atraumatic, Normocephalic Neck: No Nodes, Thyroid Normal Size and Texture Lungs: Clear to auscultation, Normal air movement, No rhonchi, No wheeze Cardiovascular: Regular rate, Regular Rhythm, Normal S1, Normal S2, No murmurs Abdomen: Bowel Sounds Present, Soft, Non Tender, Non-Distended, No Hepato- splenomegaly Extremities: No edema, No Calf Tenderness Skin: No rashes, No breakdown Musculoskeletal: No Tenderness to Palpation of Joints or Extremities, No Muscle Wasting Psych/Mental Status: Normal Affect, Appropriate Laboratory Results 11/17/17 20:30: Troponin I 37.80 H* 11/17/17 22:25: Urine Opiates Screen POSITIVE H, Urine Methadone Screen NEGATIVE , Ur Barbiturates Screen POSITIVE H, Ur Phencyclidine Scrn NEGATIVE, Ur Amphetamines Screen NEGATIVE, U Methamphetamin-MDMA NEGATIVE, U Benzodiazepines Scrn NEGATIVE, Urine Cocaine Screen NEGATIVE, U Cannabinoids Screen POSITIVE H, Ur Drug Screen Comment 11/17/17 23:26: Activated Clotting Time 180 H 11/18/17 00:15: MRSA (PCR) Negative 11/18/17 04:15: WBC 8.4, RBC 3.78 L, Hgb 12.2 L, Hct 35.9 L, MCV 95.0 H, MCH 32.3 H, MCHC 34.0, RDW 13.4, RDW Differential 44.3 H, Plt Count 260, MPV 8.5 11/18/17 04:15: PT 14.2, INR 1.1 11/18/17 04:15: Sodium 141, Potassium 3.3 L, Chloride 107, Carbon Dioxide 24.0, Anion Gap 10, BUN 15, Creatinine 0.75, Estim Creat Clear Calc 92.40, Est GFR ( MDRD) Af Amer 138, Est GFR (MDRD) Non-Af 114, BUN/Creatinine Ratio 20.0, Glucose 97, Calcium 7.8 L Current Medications Acetaminophen (Tylenol) 1,000 mg PO Q8H PRN PRN PRN Reason: PAIN Albuterol Sulfate (Ventolin Aerosols) 2.5 mg INHALATION Q2H PRN PRN PRN Reason: SHORTNESS OF BREATH Albuterol/Ipratropium (Duoneb) 3 ml INHALATION Q4HWA.RT [facility] Last Admin: 11/18/17 06:46 Dose: 3 ml Amlodipine Besylate (Norvasc) 5 mg PO DAILY [facility] Last Admin: 11/17/17 22:14 Dose: 5 mg Aspirin (Ecotrin) 81 mg PO DAILY@0800 [facility] Last Admin: 11/17/17 22:15 Dose: 81 mg Atorvastatin Calcium (Lipitor) 40 mg PO QHS [facility] Last Admin: 11/17/17 21:55 Dose: 40 mg Atropine Sulfate () 0.5 mg IV UD PRN PRN Reason: HR <50 bpm Carvedilol (Coreg) 12.5 mg PO BID [facility] Clopidogrel Bisulfate (Plavix) 75 mg PO DAILY [facility] Last Admin: 11/17/17 22:13 Dose: 75 mg Nitroglycerin/Dextrose 25 mg/ (N/A) 250 mls @ 6 mls/hr IV .[id number] [facility] PRN Reason: 10 MCG/MIN Last Admin: 11/18/17 06:28 Dose: 6 mls/hr Lisinopril (Zestril) 10 mg PO DAILY [facility] Last Admin: 11/17/17 22:14 Dose: 10 mg Morphine Sulfate (Morphine) 2 mg IV Q3H PRN PRN PRN Reason: SEVERE PAIN (6-10/10) Last Admin: 11/18/17 07:57 Dose: 2 mg Nicotine (Nicoderm Cq (Pbkc)) 21 mg TRANSDERM. DAILY [facility] Last Admin: 11/17/17 11:10 Dose: 21 mg Rivaroxaban (Xarelto) 20 mg PO DAILY [facility] Last Admin: 11/17/17 11:13 Dose: 20 mg Sodium Chloride () 5 - 30 ml IV UD PRN PRN Reason: SALINE FLUSH Last Admin: 11/18/17 07:59 Dose: 10 ml Sodium Chloride () 500 ml IV BOLUS PRN PRN Reason: VASO-VAGAL PROTOCOL Spironolactone (Aldactone) 12.5 mg PO DAILY [facility] Assessment/Plan Active and Suspected Problems Non-STEMI (non-ST elevated myocardial infarction) (Acute) 1. Non-ST elevation myocardial infarction * No stents were placed. * Medical management. * On carvedilol, aspirin, Plavix and lisinopril * Currently on a nitroglycerin drip 2. Ischemic cardiomyopathy * Ejection fraction 35% * Echocardiogram currently underway * Medical management 3. Chronic atrial fibrillation * Anticoagulated with Xarelto 4. VT prophylaxis: Patient is anticoagulated. Code Visit Inpatient E&M: 30780 Subs Hosp L2
--- NOTE | 2017-11-18 08:47 | CRPHASE1 ---
Risk Factors/Lifestyle Laboratory Values: Cardiac Rehab Phase I Labs Triglycerides 163 mg/dL (-199) 11/17/17 06:20 Cholesterol 189 mg/dL (200) 11/17/17 06:20 LDL Cholesterol 111 mg/dL (0-130) 11/17/17 06:20 HDL Cholesterol 45 mg/dL (40-) 11/17/17 06:20
[2017-11-18] MEDS: Rivaroxaban 20 MG Tablet PO (10:02)
[2017-11-18] MEDS: Carvedilol 12.5 MG Tablet PO ×2 (10:02→21:17)
[2017-11-18] MEDS: Spironolactone 25 MG Tablet 12.5 MG PO ×2 (10:02→18:02)
[2017-11-18] MEDS: Lisinopril 10 MG Tablet PO ×2 (10:17→18:02)
[2017-11-18] MEDS: Clopidogrel Bisulfate 75 MG Tablet PO (10:17)
[2017-11-18] MEDS: amLODIPine 5 MG Tablet PO (10:17)
--- NOTE | 2017-11-18 10:43 | PN.CARD_ITS ---
Subjectve: Had some chest pain this morning. According to him, it was more with him laying on the left side when his echocardiogram was being done Objective: Vital Signs Temp Pulse Resp BP Pulse Ox 97.8 F 73 21 H 158/90 H 99 11/18/17 04:00 11/18/17 09:59 11/18/17 08:30 11/18/17 09:59 11/18/17 08:30 Oxygen Flow Rate 2 Oxygen Delivery Method Room Air Weight: 60.3 kg Intake and Output for Last 24 Hours 11/16/17 11/17/17 11/18/17 23:59 23:59 23:59 Intake Total 1627 / 1687 749 / 749 Output Total 50 / 50 1675 / 1675 Balance 1577 / 1637 -926 / -926 General: Awake, Alert, Oriented x 3, No Acute Distress HEENT: Atraumatic Oral: Moist Mucosa Neck: Supple Lungs: Diminished Reddy Bases Cardiovascular: Irregular Rhythm, Normal S1, Normal S2 Abdomen: Bowel Sounds Present, Soft Extremities: No edema 11/17/17 20:30: Troponin I 37.80 H* 11/18/17 04:15: WBC 8.4, RBC 3.78 L, Hgb 12.2 L, Hct 35.9 L, MCV 95.0 H, MCH 32.3 H, MCHC 34.0, RDW 13.4, RDW Differential 44.3 H, Plt Count 260, MPV 8.5 11/18/17 04:15: PT 14.2, INR 1.1 11/18/17 04:15: Sodium 141, Potassium 3.3 L, Chloride 107, Carbon Dioxide 24.0, Anion Gap 10, BUN 15, Creatinine 0.75, Est GFR (MDRD) Af Amer 138, Est GFR (MDRD ) Non-Af 114, BUN/Creatinine Ratio 20.0, Glucose 97, Calcium 7.8 L Rhythm: Atrial fibrillation Assessment/Plan 1. Non-ST elevation myocardial infarction. 100% distal right posterior lateral ventricular branch. Small vessel. Continue medical treatment. 2. CAD. 60-70% mid RCA with negative IFR. Medical management. Stent to LAD patent 3. LV systolic dysfunction. Likely nonischemic. Will try to get old records. Await echocardiogram 4. Resistant hypertension. On carvedilol, lisinopril, Aldactone. Start on hydrochlorothiazide 5. Permanent atrial fibrillation 6. COPD 7. History of peripheral arterial disease 8. History of mitral valve repair surgery 9. History of dyslipidemia 10. Nicotine dependence. Counseled to quit
--- NOTE | 2017-11-18 10:47 | CASEMGMT ---
Addendum entered by Po Fernandez 11/19/17 14:07: Pt was scheduled for a trip to [place] on and will not be able to go for medical reasons. friend brought in insurance form for medical release of information and for physician to complete medical form. Form for Dr. Reaves is on front of chart, and medical release is also in chart. Original Note: See RN CM Assessment Link. No dc needs identified. Garry BSN RN ACM
[2017-11-18] MEDS: hydroCHLOROthiazide 25 MG Tablet PO (11:52)
--- NOTE | 2017-11-18 13:06 | PN_ITS ---
Progress Note Patient is scheduled for a post PCI office follow-up with the [facility] on January 01, 2018 at 9:30 AM with Joel Almazan Nurse Practitioner.
[2017-11-18] MEDS: cloNIDine HCl 0.1 MG Tablet PO (13:37)
[2017-11-18] MEDS: HYDROmorphone 1 MG/ML Syringe IV (15:54)
[2017-11-18] MEDS: Atorvastatin Calcium 40 MG Tablet PO (21:17)
[2017-11-18] MEDS: HYDROmorphone 1 MG/ML Syringe 0.5 MG IV (21:19)
[2017-11-18] MEDS: Zolpidem Tartrate 5 MG Tablet PO (21:42)
[2017-11-19] VITALS (27 sets, daily range): BP systolic 100–201; BP diastolic 66–122; PULSE 42–88; RESP 12–22; TEMP 36.6–36.9; O2SAT 94–100
[2017-11-19 05:09] LABS: Anion Gap 9 (5-15); BUN 14 mg/dL (7-18); BUN/Creat Ratio 18.1 RATIO (10-20); Calcium,Total 8.7 mg/dL (8.5-10.1); Chloride 109 mmol/L (98-107); Creatinine, Serum 0.77 mg/dL (0.70-1.30); EST Glomerular Filtration Rate 110 mL/min (>60); Est Glom Filt Rate - Afr Amer 133 mL/min (>60); Estimated Creatinine Clearance 87.27 ml/min; Glucose 87 mg/dL (74-106); Magnesium 2.1 mg/dL (1.6-2.6); Potassium 4.1 mmol/L (3.5-5.1); Sodium Level 140 mmol/L (136-145)
--- NOTE | 2017-11-19 05:55 | EKG12_ITS ---
Test Reason : AM Blood Pressure : / mmHG Vent. Rate : 066 BPM Atrial Rate : 094 BPM P-R Int : 000 ms QRS Dur : 106 ms QT Int : 464 ms P-R-T Axes : 000 -13 -88 degrees QTc Int : 486 ms Atrial fibrillation T wave abnormality, consider inferior ischemia Prolonged QT Abnormal ECG When compared with ECG of 18-NOV-2017 03:17, MANUAL COMPARISON REQUIRED, DATA IS UNCONFIRMED Confirmed by LOBITO CANTRELL, MARIA ISABEL ([id number]), loan expeditor DEE BONILLA ([id number]) on 11/22/2017 3:25:46 PM Referred By: DEYVI Confirmed By:MARIA ISABEL ROBIN MD
[2017-11-19] MEDS: Ipratropium/Albuterol Sulfate 3 ML AMPUL.NEB INHALATION ×3 (07:05→15:13)
--- NOTE | 2017-11-19 08:02 | PCM.PN.HOSP ---
Patient Problems: Active and Suspected Problems Non-STEMI (non-ST elevated myocardial infarction) (Acute) Subjective: Still with some left-sided chest pressure that is persistent but much improved. Patient states that it is not aggravated by doing simple activities like getting up and going to the bathroom. States that his headache is resolved since the nitroglycerin has been discontinued. Vitals/I&O's: Vital Signs Temp Pulse Resp BP Pulse Ox 36.8 C 78 18 138/90 H 97 11/19/17 05:00 11/19/17 07:05 11/19/17 07:05 11/19/17 05:00 11/19/17 07:05 Oxygen Flow Rate (L/min) 2 Oxygen Delivery Method Room Air Weight: 57.6 kg Intake and Output for Last 24 Hours 11/17/17 11/18/17 11/19/17 23:59 23:59 23:59 Intake Total 1627 / 1687 1883 / 1883 450 / 450 Output Total 50 / 50 1675 / 1675 Balance 1577 / 1637 208 / 208 450 / 450 General: Alert, Cooperative, No apparent distress HEENT: Atraumatic, Normocephalic Neck: No Nodes, Thyroid Normal Size and Texture Lungs: Clear to auscultation, Normal air movement, No rhonchi, No wheeze Cardiovascular: Regular rate, Regular Rhythm, Normal S1, Normal S2, No murmurs Abdomen: Bowel Sounds Present, Soft, Non Tender, Non-Distended, No Hepato-splenomegaly, Passing Flatus Extremities: No edema, No Calf Tenderness Skin: No rashes, No breakdown Psych/Mental Status: Normal Affect, Appropriate Laboratory Results 11/19/17 04:05: Sodium 140, Potassium 4.1, Chloride 109 H, Carbon Dioxide 22.0, Anion Gap 9, BUN 14, Creatinine 0.77, Estim Creat Clear Calc 87.27, Est GFR (MDRD) Af Amer 133, Est GFR (MDRD) Non-Af 110, BUN/Creatinine Ratio 18.1, Glucose 87, Calcium 8.7, Magnesium 2.1 Current Medications Acetaminophen (Tylenol) 1,000 mg PO Q8H PRN PRN PRN Reason: PAIN Albuterol Sulfate (Ventolin Aerosols) 2.5 mg INHALATION Q2H PRN PRN PRN Reason: SHORTNESS OF BREATH Albuterol/Ipratropium (Duoneb) 3 ml INHALATION Q4HWA.RT [facility] Last Admin: 11/19/17 07:05 Dose: 3 ml Aspirin (Ecotrin) 81 mg PO DAILY@0800 [facility] Last Admin: 11/17/17 22:15 Dose: 81 mg Atorvastatin Calcium (Lipitor) 40 mg PO QHS [facility] Last Admin: 11/18/17 21:17 Dose: 40 mg Atropine Sulfate () 0.5 mg IV UD PRN PRN Reason: HR <50 bpm Carvedilol (Coreg) 12.5 mg PO BID [facility] Last Admin: 11/18/17 21:17 Dose: 12.5 mg Clonidine (Catapres) 0.1 mg PO Q8 PRN PRN Reason: Hypertensive Emergency Last Admin: 11/18/17 13:37 Dose: 0.1 mg Clopidogrel Bisulfate (Plavix) 75 mg PO DAILY [facility] Last Admin: 11/18/17 10:17 Dose: 75 mg Hydrochlorothiazide (Hctz) 25 mg PO DAILY [facility] Last Admin: 11/18/17 11:52 Dose: 25 mg Hydromorphone HCl (Dilaudid) 0.5 mg IV Q8H PRN PRN PRN Reason: SEVERE PAIN (6-10/10) Last Admin: 11/18/17 21:19 Dose: 0.5 mg Nitroglycerin/Dextrose 25 mg/ (N/A) 250 mls @ 6 mls/hr IV .[id number] [facility] PRN Reason: 10 MCG/MIN Last Admin: 11/18/17 09:59 Dose: 6 mls/hr Lisinopril (Zestril) 20 mg PO DAILY [facility] Nicotine (Nicoderm Cq (Pbkc)) 21 mg TRANSDERM. DAILY [facility] Last Admin: 11/17/17 11:10 Dose: 21 mg Nifedipine (Procardia Xl) 90 mg PO DAILY [facility] Oxycodone HCl (Oxyir) 5 mg PO Q4H PRN PRN PRN Reason: SEVERE PAIN (6-10/10) Rivaroxaban (Xarelto) 20 mg PO DAILY [facility] Last Admin: 11/18/17 10:02 Dose: 20 mg Sodium Chloride () 5 - 30 ml IV UD PRN PRN Reason: SALINE FLUSH Last Admin: 11/18/17 21:18 Dose: 20 ml Sodium Chloride () 500 ml IV BOLUS PRN PRN Reason: VASO-VAGAL PROTOCOL Spironolactone (Aldactone) 25 mg PO DAILY [facility] Zolpidem Tartrate (Ambien (Generic)) 5 mg PO QHS PRN PRN PRN Reason: sleep Last Admin: 11/18/17 21:42 Dose: 5 mg Assessment/Plan Active and Suspected Problems Non-STEMI (non-ST elevated myocardial infarction) (Acute) 1. Non-ST elevation myocardial infarction No stents were placed. Medical management. On carvedilol, aspirin, Plavix and lisinopril Still chest pain but much improved. Will defer to cardiology in regards to further management of this. 2. Ischemic cardiomyopathy Ejection fraction 35% on heart catheterization. 39% on echocardiogram. Medical management On Coreg, lisinopril and spironolactone. 3. Chronic atrial fibrillation Anticoagulated with Xarelto Rate controlled though does have some bradycardia at night. 4. Hypertension Patient started on 25 mg of hydrochlorothiazide on November 18. Lisinopril increased from 10-20 mg. Patient to receive first dose of 20 mg on November 19. Procardia to be started on the . Would not further increase carvedilol at this time given some the bradycardia the patient demonstrates particularly at night. 5. VT prophylaxis: Patient is anticoagulated. 6. Disposition: Patient will be changed over to progressive care unit status. Await further input from cardiology in regards to the patient's chest pain and if any additional medications would be warranted. Also await on patient's response to his antihypertensives. Code Visit Inpatient E&M: 71490 [facility] Hosp L2
--- NOTE | 2017-11-19 08:08 | PN_ITS ---
Patient Problems: Active and Suspected Problems Non-STEMI (non-ST elevated myocardial infarction) (Acute) Subjective: Still with some left-sided chest pressure that is persistent but much improved. Patient states that it is not aggravated by doing simple activities like getting up and going to the bathroom. States that his headache is resolved since the nitroglycerin has been discontinued. Vitals/I&O's: Vital Signs Temp Pulse Resp BP Pulse Ox 36.8 C 78 18 138/90 H 97 11/19/17 05:00 11/19/17 07:05 11/19/17 07:05 11/19/17 05:00 11/19/17 07:05 Oxygen Flow Rate (L/min) 2 Oxygen Delivery Method Room Air Weight: 57.6 kg Intake and Output for Last 24 Hours 11/17/17 11/18/17 11/19/17 23:59 23:59 23:59 Intake Total 1627 / 1687 1883 / 1883 450 / 450 Output Total 50 / 50 1675 / 1675 Balance 1577 / 1637 208 / 208 450 / 450 General: Alert, Cooperative, No apparent distress HEENT: Atraumatic, Normocephalic Neck: No Nodes, Thyroid Normal Size and Texture Lungs: Clear to auscultation, Normal air movement, No rhonchi, No wheeze Cardiovascular: Regular rate, Regular Rhythm, Normal S1, Normal S2, No murmurs Abdomen: Bowel Sounds Present, Soft, Non Tender, Non-Distended, No Hepato- splenomegaly, Passing Flatus Extremities: No edema, No Calf Tenderness Skin: No rashes, No breakdown Psych/Mental Status: Normal Affect, Appropriate Laboratory Results 11/19/17 04:05: Sodium 140, Potassium 4.1, Chloride 109 H, Carbon Dioxide 22.0, Anion Gap 9, BUN 14, Creatinine 0.77, Estim Creat Clear Calc 87.27, Est GFR ( MDRD) Af Amer 133, Est GFR (MDRD) Non-Af 110, BUN/Creatinine Ratio 18.1, Glucose 87, Calcium 8.7, Magnesium 2.1 Current Medications Acetaminophen (Tylenol) 1,000 mg PO Q8H PRN PRN PRN Reason: PAIN Albuterol Sulfate (Ventolin Aerosols) 2.5 mg INHALATION Q2H PRN PRN PRN Reason: SHORTNESS OF BREATH Albuterol/Ipratropium (Duoneb) 3 ml INHALATION Q4HWA.RT [facility] Last Admin: 11/19/17 07:05 Dose: 3 ml Aspirin (Ecotrin) 81 mg PO DAILY@0800 [facility] Last Admin: 11/17/17 22:15 Dose: 81 mg Atorvastatin Calcium (Lipitor) 40 mg PO QHS [facility] Last Admin: 11/18/17 21:17 Dose: 40 mg Atropine Sulfate () 0.5 mg IV UD PRN PRN Reason: HR <50 bpm Carvedilol (Coreg) 12.5 mg PO BID [facility] Last Admin: 11/18/17 21:17 Dose: 12.5 mg Clonidine (Catapres) 0.1 mg PO Q8 PRN PRN Reason: Hypertensive Emergency Last Admin: 11/18/17 13:37 Dose: 0.1 mg Clopidogrel Bisulfate (Plavix) 75 mg PO DAILY [facility] Last Admin: 11/18/17 10:17 Dose: 75 mg Hydrochlorothiazide (Hctz) 25 mg PO DAILY [facility] Last Admin: 11/18/17 11:52 Dose: 25 mg Hydromorphone HCl (Dilaudid) 0.5 mg IV Q8H PRN PRN PRN Reason: SEVERE PAIN (6-10/10) Last Admin: 11/18/17 21:19 Dose: 0.5 mg Nitroglycerin/Dextrose 25 mg/ (N/A) 250 mls @ 6 mls/hr IV .[id number] [facility] PRN Reason: 10 MCG/MIN Last Admin: 11/18/17 09:59 Dose: 6 mls/hr Lisinopril (Zestril) 20 mg PO DAILY [facility] Nicotine (Nicoderm Cq (Pbkc)) 21 mg TRANSDERM. DAILY [facility] Last Admin: 11/17/17 11:10 Dose: 21 mg Nifedipine (Procardia Xl) 90 mg PO DAILY [facility] Oxycodone HCl (Oxyir) 5 mg PO Q4H PRN PRN PRN Reason: SEVERE PAIN (6-10/10) Rivaroxaban (Xarelto) 20 mg PO DAILY [facility] Last Admin: 11/18/17 10:02 Dose: 20 mg Sodium Chloride () 5 - 30 ml IV UD PRN PRN Reason: SALINE FLUSH Last Admin: 11/18/17 21:18 Dose: 20 ml Sodium Chloride () 500 ml IV BOLUS PRN PRN Reason: VASO-VAGAL PROTOCOL Spironolactone (Aldactone) 25 mg PO DAILY [facility] Zolpidem Tartrate (Ambien (Generic)) 5 mg PO QHS PRN PRN PRN Reason: sleep Last Admin: 11/18/17 21:42 Dose: 5 mg Assessment/Plan Active and Suspected Problems Non-STEMI (non-ST elevated myocardial infarction) (Acute) 1. Non-ST elevation myocardial infarction * No stents were placed. * Medical management. * On carvedilol, aspirin, Plavix and lisinopril * Still chest pain but much improved. Will defer to cardiology in regards to further management of this. 2. Ischemic cardiomyopathy * Ejection fraction 35% on heart catheterization. 39% on echocardiogram. * Medical management * On Coreg, lisinopril and spironolactone. 3. Chronic atrial fibrillation * Anticoagulated with Xarelto * Rate controlled though does have some bradycardia at night. 4. Hypertension * Patient started on 25 mg of hydrochlorothiazide on November 18. * Lisinopril increased from 10-20 mg. Patient to receive first dose of 20 mg on November 19. * Procardia to be started on the . * Would not further increase carvedilol at this time given some the bradycardia the patient demonstrates particularly at night. 5. VT prophylaxis: Patient is anticoagulated. 6. Disposition: * Patient will be changed over to progressive care unit status. Await further input from cardiology in regards to the patient's chest pain and if any additional medications would be warranted. Also await on patient's response to his antihypertensives. Code Visit Inpatient E&M: 77042 [facility] Hosp L2
[2017-11-19] MEDS: Aspirin E.C. 81 MG Tablet PO (08:48)
[2017-11-19] MEDS: Spironolactone 25 MG Tablet PO (08:48)
[2017-11-19] MEDS: Carvedilol 12.5 MG Tablet PO ×2 (08:49→21:05)
[2017-11-19] MEDS: hydroCHLOROthiazide 25 MG Tablet PO (08:49)
[2017-11-19] MEDS: Clopidogrel Bisulfate 75 MG Tablet PO (08:49)
[2017-11-19] MEDS: Rivaroxaban 20 MG Tablet PO (08:50)
[2017-11-19] MEDS: NIFEdipine 90 MG Tablet PO (08:50)
[2017-11-19] MEDS: Lisinopril 20 MG Tablet PO (08:50)
--- NOTE | 2017-11-19 09:44 | RDU_ITS ---
Reason For Study: HYPERTENSION Right Renal Artery Left Renal Artery Right renal artery ostium Left renal artery ostium 109.0/29.5 101.0/32.1 RSV/EDV. PSV/EDV. Right renal artery proximal Left renal artery proximal PSV/EDV 108.0/33.5 PSV/EDV. 93.5/23.2 . Right renal artery mid 118.0/32.7 Left renal artery mid 83.7/25.7 PSV/EDV. PSV/EDV . Right renal artery distal Left renal artery distal 91.1/24.4 115.0/39.1 PSV/EDV. PSV/EDV. Right Renal Parenchyma Left Renal Parenchyma Upper Pole Medula 44.3/15.9 Left upper pole medulla 28.7/11.3 PSV/EDV. PSV/EDV . Right upper pole medulla EDR .36 . Left upper pole medulla EDR .39 . Right upper pole medulla R.I. .64 . Left upper pole medulla R.I. .61 . Upper [place] Cortx 29.3/9.5 PSV/EDV. UP Cortex 22.9/8.3 PSV/EDV. Right upper pole cortex EDR .32 . Left upper pole cortex EDR .36 . Right upper pole cortex R.I. .68 . Left upper pole cortex R.I. .64 . Right lower Pole medulla 19.9/9.2 Left lower Pole medulla 30.9/12.5 PSV/EDV . PSV/EDV . Right lower pole medulla EDR .46 . Left lower pole medulla EDR .40 . Right lower pole medulla R.I. .54 . Left lower pole medulla R.I. .59 . Lower Pole Cortex 16.5/6.1 PSV/EDV. Lower Pole Cortx 21.4/8.6 PSV/EDV. Right lower pole cortex EDR .37 . Left lower pole cortex EDR .40 . Right lower pole cortex R.I. .63 . Left lower pole cortex R.I. .60 . Right Renal Hilar Left Renal Hilar Right Hilar avg 51.9/15.3 PSV/EDV. LT Hilar avg 81.2/24.2 PSV/EDV . Right hilar acceleration time 51 Left hilar acceleration time 59 m/sec. m/sec. Right Renal Dimensions Left Renal Dimensions Right kidney size 10.3 cm . Left kidney size 11.4 cm . Right cortical dimension 1.5 cm . Left cortical dimension 1.5 cm . Cyst noted 2.4 x 2.6 cm. Aorta Proximal abdominal aorta 1.8 x 1.7 cm . Distal abdominal aorta 1.2 x 1.1 cm . Proximal abdominal aorta peak systolic velocity is 39.1 cm/sec . Distal abdominal aorta peak systolic velocity is 64.2 cm/sec . Interpretation Summary 1. Bilateral renal arteries with no evidence of significant stenosis, bilateral <60%. 2. Bilateral normal RI. Ordering Physician: Valorie Reaves Referring Physician: Rian Metz Performed By: Haily Beasley RVT
--- NOTE | 2017-11-19 09:44 | PN.CARD_ITS ---
Subjectve: Denies any chest pain this morning. No complaints Objective: Vital Signs Temp Pulse Resp BP Pulse Ox 98.4 F 83 20 H 181/112 H 98 11/19/17 08:00 11/19/17 09:00 11/19/17 09:00 11/19/17 09:00 11/19/17 09:00 Oxygen Flow Rate (L/min) 2 Oxygen Delivery Method Room Air Weight: 57.6 kg Intake and Output for Last 24 Hours 11/17/17 11/18/17 11/19/17 23:59 23:59 23:59 Intake Total 1627 / 1687 1883 / 1883 450 / 450 Output Total 50 / 50 1675 / 1675 Balance 1577 / 1637 208 / 208 450 / 450 General: Healthy Appearing, Awake, Alert, Oriented x 3 Lungs: Clear to auscultation Cardiovascular: Irregular Rhythm, Normal S1, Normal S2 Abdomen: Bowel Sounds Present, Soft Extremities: No edema 11/19/17 04:05: Sodium 140, Potassium 4.1, Chloride 109 H, Carbon Dioxide 22.0, Anion Gap 9, BUN 14, Creatinine 0.77, Est GFR (MDRD) Af Amer 133, Est GFR (MDRD ) Non-Af 110, BUN/Creatinine Ratio 18.1, Glucose 87, Calcium 8.7, Magnesium 2.1 Rhythm: EKG: ECHO: Stress Test: Cardiac Cath: PCI: CT Surgery: Holter monitor: EPS: PPM: CXR: Chest CT Scan: Assessment/Plan 1. Non-ST elevation myocardial infarction. 100% distal right posterior lateral ventricular branch. Small vessel. Continue medical treatment. 2. CAD. 60-70% mid RCA with negative IFR. Medical management. Stent to LAD patent 3. LV systolic dysfunction. Likely nonischemic. EF 39% on echocardiogram. 4. Resistant hypertension. On carvedilol, lisinopril, Aldactone, hydrochlorothiazide. Started on Procardia XL this morning. Repeat blood pressure 156/90 mmHg. Continue to monitor. Check bilateral renal arterial Doppler to rule out renal artery stenosis 5. Permanent atrial fibrillation 6. COPD 7. History of peripheral arterial disease 8. History of mitral valve repair surgery 9. History of dyslipidemia 10. Nicotine dependence. Counseled to quit 11. Short run of nonsustained VT yesterday. Carvedilol increased. Continue to monitor
[2017-11-19] MEDS: oxyCODONE 5 MG Tablet PO (11:22)
[2017-11-19] MEDS: cloNIDine HCl 0.1 MG Tablet PO (12:12)
--- NOTE | 2017-11-19 14:18 | NURSING ---
REPORT CALLED TO PCU FOR TRANSFER TO ROOM 114
--- NOTE | 2017-11-19 20:12 | EKG12_ITS ---
Test Reason : CP Blood Pressure : / mmHG Vent. Rate : 067 BPM Atrial Rate : 081 BPM P-R Int : 000 ms QRS Dur : 106 ms QT Int : 418 ms P-R-T Axes : 000 011 265 degrees QTc Int : 441 ms Atrial fibrillation Voltage criteria for left ventricular hypertrophy ST & T wave abnormality, consider inferolateral ischemia Abnormal ECG When compared with ECG of 19-NOV-2017 05:05, MANUAL COMPARISON REQUIRED, DATA IS UNCONFIRMED Confirmed by LOBITO CANTRELL, MARIA ISABEL ([id number]), deputy editor in chief DEE BONILLA ([id number]) on 11/22/2017 3:18:15 PM Referred By: DEYVI Confirmed By:MARIA ISABEL ROBIN MD
[2017-11-19] MEDS: HYDROmorphone 1 MG/ML Syringe 0.5 MG IV ×2 (20:22→23:04)
[2017-11-19] MEDS: 0.9% NaCl Peripheral Flush Adult/Peds IV ×2 (20:23→23:03)
[2017-11-19] MEDS: Atorvastatin Calcium 40 MG Tablet PO (21:05)
[2017-11-19] MEDS: Zolpidem Tartrate 5 MG Tablet PO (23:02)
[2017-11-20] VITALS (15 sets, daily range): BP systolic 116–154; BP diastolic 78–100; PULSE 55–97; RESP 14–18; TEMP 36.1–37.2; O2SAT 94–98
--- NOTE | 2017-11-20 05:55 | EKG12_ITS ---
Test Reason : AM EKG Blood Pressure : / mmHG Vent. Rate : 053 BPM Atrial Rate : 061 BPM P-R Int : 000 ms QRS Dur : 106 ms QT Int : 458 ms P-R-T Axes : 000 -03 270 degrees QTc Int : 429 ms Atrial fibrillation Voltage criteria for left ventricular hypertrophy ST & T wave abnormality, consider inferolateral ischemia Abnormal ECG When compared with ECG of 19-NOV-2017 20:13, MANUAL COMPARISON REQUIRED, DATA IS UNCONFIRMED Confirmed by LOBITO CANTRELL, MARIA ISABEL ([id number]), editorial specialist DEE BONILLA ([id number]) on 11/22/2017 3:17:36 PM Referred By: DEYVI Confirmed By:MARIA ISABEL ROBIN MD
[2017-11-20] MEDS: Ipratropium/Albuterol Sulfate 3 ML AMPUL.NEB INHALATION ×4 (07:26→19:14)
[2017-11-20] MEDS: Rivaroxaban 20 MG Tablet PO (08:59)
[2017-11-20] MEDS: Lisinopril 20 MG Tablet PO (08:59)
[2017-11-20] MEDS: NIFEdipine 90 MG Tablet PO (09:00)
[2017-11-20] MEDS: Spironolactone 25 MG Tablet PO (09:00)
[2017-11-20] MEDS: Carvedilol 12.5 MG Tablet PO ×2 (09:00→21:38)
[2017-11-20] MEDS: Clopidogrel Bisulfate 75 MG Tablet PO (09:00)
[2017-11-20] MEDS: Aspirin E.C. 81 MG Tablet PO (09:00)
[2017-11-20] MEDS: hydroCHLOROthiazide 25 MG Tablet PO (09:00)
--- NOTE | 2017-11-20 09:56 | PN.CARD_ITS ---
Subjectve: Some chest pain last night. Asymptomatic this morning. Ambulating. Troponins trending down. Objective: Vital Signs Temp Pulse Resp BP Pulse Ox 97.9 F 78 16 126/78 H 95 11/20/17 03:00 11/20/17 07:26 11/20/17 07:26 11/20/17 03:00 11/20/17 07:26 Oxygen Flow Rate (L/min) 2 Oxygen Delivery Method Room Air Weight: 56.9 kg Intake and Output for Last 24 Hours 11/18/17 11/19/17 11/20/17 23:59 23:59 23:59 Intake Total 1883 / 1883 1350 / 1350 Output Total 1675 / 1675 Balance 208 / 208 1350 / 1350 General: Awake, Alert, Oriented x 3 Neck: No JVD Lungs: Clear to auscultation Cardiovascular: Irregular Rhythm, Normal S1, Normal S2 Abdomen: Bowel Sounds Present, Soft Extremities: No edema Neurological: No Focal Motor or Sensory Deficit, CN II-XII Intact Psych/Mental Status: Appropriate 11/20/17 05:55: Troponin I 16.00 H* Rhythm: Atrial fibrillation Assessment/Plan 1. Non-ST elevation myocardial infarction. 100% distal right posterior lateral ventricular branch. Small vessel. Continue medical treatment. Some post infarct angina. Will start on Ranexa. 2. CAD. 60-70% mid RCA with negative IFR. Medical management. Stent to LAD patent 3. LV systolic dysfunction. Likely nonischemic. EF 39% on echocardiogram. 4. Resistant hypertension. On carvedilol, lisinopril, Aldactone, hydrochlorothiazide. Started on Procardia XL this morning. Blood pressure controlled now. 5. Permanent atrial fibrillation 6. COPD 7. History of peripheral arterial disease 8. History of mitral valve repair surgery 9. History of dyslipidemia 10. Nicotine dependence. Counseled to quit Anticipate discharge home tomorrow morning. He wishes to follow-up with Dr. Pérez, his primary adjunct english instructor
[2017-11-20] MEDS: Ranolazine 500 MG Tablet PO ×2 (10:16→21:38)
--- NOTE | 2017-11-20 12:31 | EKG12_ITS ---
Test Reason : CP Blood Pressure : / mmHG Vent. Rate : 056 BPM Atrial Rate : 064 BPM P-R Int : 000 ms QRS Dur : 102 ms QT Int : 422 ms P-R-T Axes : 000 -07 228 degrees QTc Int : [address] & T wave abnormality, consider inferior ischemia ST & T wave abnormality, consider anterolateral ischemia Abnormal ECG When compared with ECG of 20-NOV-2017 05:29, MANUAL COMPARISON REQUIRED, DATA IS UNCONFIRMED Confirmed by LOBITO CANTRELL, MARIA ISABEL ([id number]), editorial specialist DEE BONILLA ([id number]) on 11/22/2017 3:15:48 PM Referred By: DEYVI Confirmed By:MARIA ISABEL ROBIN MD
--- NOTE | 2017-11-20 14:33 | PCM.PN.HOSP ---
Patient Problems: Active and Suspected Problems Non-STEMI (non-ST elevated myocardial infarction) (Acute) Subjective: Still with chest pain despite being started on Ranexa. Patient also requesting something be done about his peripheral arterial disease. Patient stated that he had an appointment to see a Dr. Reynoso for evaluation of his recent arterial studies. Vitals/I&O's: Vital Signs Temp Pulse Resp BP Pulse Ox 36.1 C L 67 17 116/82 H 96 11/20/17 12:30 11/20/17 12:30 11/20/17 12:30 11/20/17 12:30 11/20/17 12:30 Oxygen Flow Rate (L/min) 2 Oxygen Delivery Method Room Air Weight: 56.9 kg Intake and Output for Last 24 Hours 11/18/17 11/19/17 11/20/17 23:59 23:59 23:59 Intake Total 1883 / 1883 1350 / 1350 720 / 720 Output Total 1675 / 1675 Balance 208 / 208 1350 / 1350 720 / 720 General: Alert, No apparent distress Neck: No Nodes, Thyroid Normal Size and Texture Lungs: Clear to auscultation, Normal air movement, No rhonchi, No wheeze Cardiovascular: Regular rate, Regular Rhythm, Normal S1, Normal S2, No murmurs Abdomen: Bowel Sounds Present, Soft, Non Tender, Non-Distended, No Hepato-splenomegaly, Passing Flatus Extremities: No edema, No Calf Tenderness Musculoskeletal: No Tenderness to Palpation of Joints or Extremities, Muscle Wasting Psych/Mental Status: Normal Affect, Appropriate Laboratory Results 11/20/17 05:55: Troponin I 16.00 H* 11/20/17 12:50: Troponin I 8.95 H* Current Medications Acetaminophen (Tylenol) 1,000 mg PO Q8H PRN PRN PRN Reason: PAIN Albuterol Sulfate (Ventolin Aerosols) 2.5 mg INHALATION Q2H PRN PRN PRN Reason: SHORTNESS OF BREATH Albuterol/Ipratropium (Duoneb) 3 ml INHALATION Q4HWA.RT [facility] Last Admin: 11/20/17 10:43 Dose: 3 ml Aspirin (Ecotrin) 81 mg PO DAILY@0800 [facility] Last Admin: 11/20/17 09:00 Dose: 81 mg Atorvastatin Calcium (Lipitor) 40 mg PO QHS [facility] Last Admin: 11/19/17 21:05 Dose: 40 mg Atropine Sulfate () 0.5 mg IV UD PRN PRN Reason: HR <50 bpm Carvedilol (Coreg) 12.5 mg PO BID [facility] Last Admin: 11/20/17 09:00 Dose: 12.5 mg Clonidine (Catapres) 0.1 mg PO Q8 PRN PRN Reason: Hypertensive Emergency Last Admin: 11/19/17 12:12 Dose: 0.1 mg Clopidogrel Bisulfate (Plavix) 75 mg PO DAILY [facility] Last Admin: 11/20/17 09:00 Dose: 75 mg Hydrochlorothiazide (Hctz) 25 mg PO DAILY [facility] Last Admin: 11/20/17 09:00 Dose: 25 mg Hydromorphone HCl (Dilaudid) 1 mg IV Q4H PRN PRN PRN Reason: SEVERE PAIN (6-10/10) Lisinopril (Zestril) 20 mg PO DAILY [facility] Last Admin: 11/20/17 08:59 Dose: 20 mg Morphine Sulfate (Morphine) 2 mg IV Q4H PRN PRN PRN Reason: SEVERE PAIN (6-10/10) Last Admin: 11/20/17 12:40 Dose: 2 mg Nicotine (Nicoderm Cq (Pbkc)) 21 mg TRANSDERM. DAILY [facility] Last Admin: 11/20/17 09:00 Dose: 21 mg Nifedipine (Procardia Xl) 90 mg PO DAILY [facility] Last Admin: 11/20/17 09:00 Dose: 90 mg Oxycodone HCl (Oxyir) 5 mg PO Q4H PRN PRN PRN Reason: SEVERE PAIN (6-10/10) Last Admin: 11/19/17 11:22 Dose: 5 mg Ranolazine (Ranexa) 500 mg PO BID [facility] Last Admin: 11/20/17 10:16 Dose: 500 mg Rivaroxaban (Xarelto) 20 mg PO DAILY [facility] Last Admin: 11/20/17 08:59 Dose: 20 mg Sodium Chloride () 5 - 30 ml IV UD PRN PRN Reason: SALINE FLUSH Last Admin: 11/19/17 23:03 Dose: 10 ml Spironolactone (Aldactone) 25 mg PO DAILY [facility] Last Admin: 11/20/17 09:00 Dose: 25 mg Zolpidem Tartrate (Ambien (Generic)) 5 mg PO QHS PRN PRN PRN Reason: sleep Last Admin: 11/19/17 23:02 Dose: 5 mg Assessment/Plan Active and Suspected Problems Non-STEMI (non-ST elevated myocardial infarction) (Acute) 1. Non-ST elevation myocardial infarction No stents were placed. Medical management. On carvedilol, aspirin, Plavix and lisinopril Still chest pain but much improved. Will defer to cardiology in regards to further management of this. Started on Ranexa today Patient's troponins have been trending down. 2. Ischemic cardiomyopathy Ejection fraction 35% on heart catheterization. 39% on echocardiogram. Medical management On Coreg, lisinopril and spironolactone. 3. Chronic atrial fibrillation Anticoagulated with Xarelto Rate controlled though does have some bradycardia at night. 4. Hypertension Patient started on 25 mg of hydrochlorothiazide on November 18. Lisinopril increased from 10-20 mg. Patient to receive first dose of 20 mg on November 19. Procardia to be started on the . Would not further increase carvedilol at this time given some the bradycardia the patient demonstrates particularly at night. 5. VT prophylaxis: Patient is anticoagulated. 6. Disposition: Patient will be changed over to progressive care unit status. Await further input from cardiology in regards to the patient's chest pain and if any additional medications would be warranted. Also await on patient's response to his antihypertensives. 7. Peripheral arterial disease patient had an outpatient appointment with Dr. Reynoso scheduled for this week which obviously had to be canceled in light of his recent hospitalization. Told patient that he would not have any surgery done here but said I would look into see if Dr. Reynoso would come this hospital. The dye reel operator helper has informed me that Dr. Reynoso does not come to this hospital. Patient will need follow-up with Dr. Reynoso as outpatient for further evaluation of his peripheral arterial disease. Code Visit Inpatient E&M: 73772 Subs Hosp L2
--- NOTE | 2017-11-20 14:36 | PN_ITS ---
Patient Problems: Active and Suspected Problems Non-STEMI (non-ST elevated myocardial infarction) (Acute) Subjective: Still with chest pain despite being started on Ranexa. Patient also requesting something be done about his peripheral arterial disease. Patient stated that he had an appointment to see a Dr. Reynoso for evaluation of his recent arterial studies. Vitals/I&O's: Vital Signs Temp Pulse Resp BP Pulse Ox 36.1 C L 67 17 116/82 H 96 11/20/17 12:30 11/20/17 12:30 11/20/17 12:30 11/20/17 12:30 11/20/17 12:30 Oxygen Flow Rate (L/min) 2 Oxygen Delivery Method Room Air Weight: 56.9 kg Intake and Output for Last 24 Hours 11/18/17 11/19/17 11/20/17 23:59 23:59 23:59 Intake Total 1883 / 1883 1350 / 1350 720 / 720 Output Total 1675 / 1675 Balance 208 / 208 1350 / 1350 720 / 720 General: Alert, No apparent distress Neck: No Nodes, Thyroid Normal Size and Texture Lungs: Clear to auscultation, Normal air movement, No rhonchi, No wheeze Cardiovascular: Regular rate, Regular Rhythm, Normal S1, Normal S2, No murmurs Abdomen: Bowel Sounds Present, Soft, Non Tender, Non-Distended, No Hepato- splenomegaly, Passing Flatus Extremities: No edema, No Calf Tenderness Musculoskeletal: No Tenderness to Palpation of Joints or Extremities, Muscle Wasting Psych/Mental Status: Normal Affect, Appropriate Laboratory Results 11/20/17 05:55: Troponin I 16.00 H* 11/20/17 12:50: Troponin I 8.95 H* Current Medications Acetaminophen (Tylenol) 1,000 mg PO Q8H PRN PRN PRN Reason: PAIN Albuterol Sulfate (Ventolin Aerosols) 2.5 mg INHALATION Q2H PRN PRN PRN Reason: SHORTNESS OF BREATH Albuterol/Ipratropium (Duoneb) 3 ml INHALATION Q4HWA.RT [facility] Last Admin: 11/20/17 10:43 Dose: 3 ml Aspirin (Ecotrin) 81 mg PO DAILY@0800 [facility] Last Admin: 11/20/17 09:00 Dose: 81 mg Atorvastatin Calcium (Lipitor) 40 mg PO QHS [facility] Last Admin: 11/19/17 21:05 Dose: 40 mg Atropine Sulfate () 0.5 mg IV UD PRN PRN Reason: HR <50 bpm Carvedilol (Coreg) 12.5 mg PO BID [facility] Last Admin: 11/20/17 09:00 Dose: 12.5 mg Clonidine (Catapres) 0.1 mg PO Q8 PRN PRN Reason: Hypertensive Emergency Last Admin: 11/19/17 12:12 Dose: 0.1 mg Clopidogrel Bisulfate (Plavix) 75 mg PO DAILY [facility] Last Admin: 11/20/17 09:00 Dose: 75 mg Hydrochlorothiazide (Hctz) 25 mg PO DAILY [facility] Last Admin: 11/20/17 09:00 Dose: 25 mg Hydromorphone HCl (Dilaudid) 1 mg IV Q4H PRN PRN PRN Reason: SEVERE PAIN (6-10/10) Lisinopril (Zestril) 20 mg PO DAILY [facility] Last Admin: 11/20/17 08:59 Dose: 20 mg Morphine Sulfate (Morphine) 2 mg IV Q4H PRN PRN PRN Reason: SEVERE PAIN (6-10/10) Last Admin: 11/20/17 12:40 Dose: 2 mg Nicotine (Nicoderm Cq (Pbkc)) 21 mg TRANSDERM. DAILY [facility] Last Admin: 11/20/17 09:00 Dose: 21 mg Nifedipine (Procardia Xl) 90 mg PO DAILY [facility] Last Admin: 11/20/17 09:00 Dose: 90 mg Oxycodone HCl (Oxyir) 5 mg PO Q4H PRN PRN PRN Reason: SEVERE PAIN (6-10/10) Last Admin: 11/19/17 11:22 Dose: 5 mg Ranolazine (Ranexa) 500 mg PO BID [facility] Last Admin: 11/20/17 10:16 Dose: 500 mg Rivaroxaban (Xarelto) 20 mg PO DAILY [facility] Last Admin: 11/20/17 08:59 Dose: 20 mg Sodium Chloride () 5 - 30 ml IV UD PRN PRN Reason: SALINE FLUSH Last Admin: 11/19/17 23:03 Dose: 10 ml Spironolactone (Aldactone) 25 mg PO DAILY [facility] Last Admin: 11/20/17 09:00 Dose: 25 mg Zolpidem Tartrate (Ambien (Generic)) 5 mg PO QHS PRN PRN PRN Reason: sleep Last Admin: 11/19/17 23:02 Dose: 5 mg Assessment/Plan Active and Suspected Problems Non-STEMI (non-ST elevated myocardial infarction) (Acute) 1. Non-ST elevation myocardial infarction * No stents were placed. * Medical management. * On carvedilol, aspirin, Plavix and lisinopril * Still chest pain but much improved. Will defer to cardiology in regards to further management of this. * Started on Ranexa today * Patient's troponins have been trending down. 2. Ischemic cardiomyopathy * Ejection fraction 35% on heart catheterization. 39% on echocardiogram. * Medical management * On Coreg, lisinopril and spironolactone. 3. Chronic atrial fibrillation * Anticoagulated with Xarelto * Rate controlled though does have some bradycardia at night. 4. Hypertension * Patient started on 25 mg of hydrochlorothiazide on November 18. * Lisinopril increased from 10-20 mg. Patient to receive first dose of 20 mg on November 19. * Procardia to be started on the . * Would not further increase carvedilol at this time given some the bradycardia the patient demonstrates particularly at night. 5. VT prophylaxis: Patient is anticoagulated. 6. Disposition: * Patient will be changed over to progressive care unit status. Await further input from cardiology in regards to the patient's chest pain and if any additional medications would be warranted. Also await on patient's response to his antihypertensives. 7. Peripheral arterial disease * patient had an outpatient appointment with Dr. Reynoso scheduled for this week which obviously had to be canceled in light of his recent hospitalization. * Told patient that he would not have any surgery done here but said I would look into see if Dr. Reynoso would come this hospital. The vacuum evaporation operator has informed me that Dr. Reynoso does not come to this hospital. Patient will need follow-up with Dr. Reynoso as outpatient for further evaluation of his peripheral arterial disease. Code Visit Inpatient E&M: 39393 Subs Hosp L2
[2017-11-20 18:35] LABS: Anion Gap 11 (5-15); BUN 28 mg/dL (7-18); BUN/Creat Ratio 21.9 RATIO (10-20); Calcium,Total 8.8 mg/dL (8.5-10.1); Chloride 109 mmol/L (98-107); Creatinine, Serum 1.28 mg/dL (0.70-1.30); EST Glomerular Filtration Rate 62 mL/min (>60); Est Glom Filt Rate - Afr Amer 75 mL/min (>60); Estimated Creatinine Clearance 51.86 ml/min; Glucose 117 mg/dL (74-106); Magnesium 2.1 mg/dL (1.6-2.6); Potassium 4.3 mmol/L (3.5-5.1); Sodium Level 141 mmol/L (136-145)
[2017-11-20] MEDS: Atorvastatin Calcium 40 MG Tablet PO (21:38)
[2017-11-20] MEDS: 0.9% NaCl Peripheral Flush Adult/Peds IV (21:38)
[2017-11-20] MEDS: Zolpidem Tartrate 5 MG Tablet PO (21:42)
[2017-11-21] VITALS (12 sets, daily range): BP systolic 109–153; BP diastolic 71–102; PULSE 38–74; RESP 14–18; TEMP 36.6–37; O2SAT 95–99
[2017-11-21 07:01] LABS: Anion Gap 7 (5-15); BUN 24 mg/dL (7-18); BUN/Creat Ratio 20.9 RATIO (10-20); Calcium,Total 8.7 mg/dL (8.5-10.1); Chloride 106 mmol/L (98-107); Creatinine, Serum 1.15 mg/dL (0.70-1.30); EST Glomerular Filtration Rate 70 mL/min (>60); Est Glom Filt Rate - Afr Amer 84 mL/min (>60); Estimated Creatinine Clearance 57.72 ml/min; Glucose 135 mg/dL (74-106); Potassium 4.4 mmol/L (3.5-5.1); Sodium Level 140 mmol/L (136-145)
[2017-11-21] MEDS: Ipratropium/Albuterol Sulfate 3 ML AMPUL.NEB INHALATION ×2 (07:17→15:04)
[2017-11-21] MEDS: oxyCODONE 5 MG Tablet PO (08:00)
[2017-11-21] MEDS: Carvedilol 12.5 MG Tablet PO (08:06)
[2017-11-21] MEDS: Spironolactone 25 MG Tablet PO (08:06)
[2017-11-21] MEDS: hydroCHLOROthiazide 25 MG Tablet PO (08:07)
[2017-11-21] MEDS: Rivaroxaban 20 MG Tablet PO (08:07)
[2017-11-21] MEDS: Clopidogrel Bisulfate 75 MG Tablet PO (08:07)
[2017-11-21] MEDS: NIFEdipine 90 MG Tablet PO (08:07)
[2017-11-21] MEDS: Ranolazine 500 MG Tablet PO (08:07)
[2017-11-21] MEDS: Lisinopril 20 MG Tablet PO (08:08)
[2017-11-21] MEDS: Aspirin E.C. 81 MG Tablet PO (08:12)
--- NOTE | 2017-11-21 08:16 | NURSING ---
0805- pt requesting all medications be given at this time
--- NOTE | 2017-11-21 08:59 | PCM.PN.BLA ---
Progress Note survey workers supervisor would like for patient to be discharged home on a life vest. He did not require any stenting. However he does have a known cardiomyopathy with an ejection fraction of 35%. Patient was also noted to have nonsustained ventricular tachycardia. Based on his ejection fraction and nonsustained ventricular tachycardia will order a LifeVest.
--- NOTE | 2017-11-21 09:03 | PN_ITS ---
Progress Note animal caretaker would like for patient to be discharged home on a life vest. He did not require any stenting. However he does have a known cardiomyopathy with an ejection fraction of 35%. Patient was also noted to have nonsustained ventricular tachycardia. Based on his ejection fraction and nonsustained ventricular tachycardia will order a LifeVest.
--- NOTE | 2017-11-21 10:25 | EKG12_ITS ---
Test Reason : CP Blood Pressure : / mmHG Vent. Rate : 059 BPM Atrial Rate : 340 BPM P-R Int : 000 ms QRS Dur : 104 ms QT Int : 434 ms P-R-T Axes : 000 -01 217 degrees QTc Int : 429 ms Atrial fibrillation Voltage criteria for left ventricular hypertrophy ST & Marked T wave abnormality, consider anterolateral ischemia Abnormal ECG When compared with ECG of 20-NOV-2017 12:40, MANUAL COMPARISON REQUIRED, DATA IS UNCONFIRMED Confirmed by LOBITO CANTRELL, MARIA ISABEL ([id number]), editor & co founder DEE BONILLA ([id number]) on 11/25/2017 3:26:42 PM Referred By: DR CARNES Confirmed By:MARIA ISABEL ROBIN MD
[2017-11-21] MEDS: 0.9% NaCl Peripheral Flush Adult/Peds IV (10:33)
--- NOTE | 2017-11-21 13:26 | PCM.PN.CARD ---
Subjectve: Patient had some discomfort left lower chest/ribs. He is able to point it with 2 fingers only. No relationship to exertion. Objective: Vital Signs Temp Pulse Resp BP Pulse Ox 98.2 F 59 L 18 109/71 97 11/21/17 10:37 11/21/17 11:00 11/21/17 10:37 11/21/17 10:37 11/21/17 10:37 Oxygen Flow Rate (L/min) 2 Oxygen Delivery Method Room Air Weight: 58.1 kg Intake and Output for Last 24 Hours 11/19/17 11/20/17 11/21/17 23:59 23:59 23:59 Intake Total 1350 / 1350 1320 / 1320 120 / 120 Balance 1350 / 1350 1320 / 1320 120 / 120 General: Healthy Appearing, Awake, Alert, Oriented x 3, No Acute Distress Oral: Moist Mucosa Neck: No JVD Lungs: Clear to auscultation Cardiovascular: Irregular Rhythm, Normal S1, Normal S2, No Murmurs, No Rubs Abdomen: Bowel Sounds Present, Soft Neurological: No Focal Motor or Sensory Deficit, CN II-XII Intact Psych/Mental Status: Appropriate 11/20/17 12:50: Troponin I 8.95 H* 11/20/17 17:54: Sodium 141, Potassium 4.3, Chloride 109 H, Carbon Dioxide 21.0, Anion Gap 11, BUN 28 H, Creatinine 1.28, Est GFR (MDRD) Af Amer 75, Est GFR (MDRD) Non-Af 62, BUN/Creatinine Ratio 21.9 H, Glucose 117 H, Calcium 8.8, Magnesium 2.1 11/21/17 05:50: Sodium 140, Potassium 4.4, Chloride 106, Carbon Dioxide 27.0, Anion Gap 7, BUN 24 H, Creatinine 1.15, Est GFR (MDRD) Af Amer 84, Est GFR (MDRD) Non-Af 70, BUN/Creatinine Ratio 20.9 H, Glucose 135 H, Calcium 8.7 Rhythm: Atrial fibrillation. Run of nonsustained ventricular tachycardia last night. Assessment/Plan 1. Non-ST elevation myocardial infarction. 100% distal right posterior lateral ventricular branch. Small vessel. Continue medical treatment. Some post infarct angina. Started on Ranexa. Patient on aspirin. Also on Xarelto for his atrial fibrillation. Will discontinue Plavix. 2. CAD. 60-70% mid RCA with negative IFR. Medical management. Stent to LAD patent 3. LV systolic dysfunction. Likely nonischemic. EF 35% on left ventriculography and 39% on echocardiogram. 4. Resistant hypertension. Controlled. 5. Permanent atrial fibrillation. On Xarelto. Patient has been on Xarelto prior to admission to the hospital. Will defer to patient's primary neon installer Dr. Pérez regarding continuing with Xarelto or switching to warfarin for his thromboembolic risk. Continue Xarelto meanwhile. 6. COPD 7. History of peripheral arterial disease 8. History of mitral valve repair surgery 9. History of dyslipidemia 10. Nicotine dependence. Counseled to quit 11. Discomfort this morning unlikely to be cardiac. Atypical. Troponin showing downward trend. Start on proton pump inhibitor for possible gastritis 12. Nonsustained ventricular tachycardia. On beta blockers. Approved for LifeVest this morning. Further follow-up as per Dr. Pérez 13. Hyperglycemia. Manage as per internal medicine/hospitalist 14. History of marijuana abuse. Counseled to quit Patient wishes to continue following with Dr. Pérez. Recommend follow-up in his office in 1-2 weeks time after discharge. May discharge home this afternoon from cardiology standpoint after LifeVest is fitted.
--- NOTE | 2017-11-21 13:36 | PN.CARD_ITS ---
Subjectve: Patient had some discomfort left lower chest/ribs. He is able to point it with 2 fingers only. No relationship to exertion. Objective: Vital Signs Temp Pulse Resp BP Pulse Ox 98.2 F 59 L 18 109/71 97 11/21/17 10:37 11/21/17 11:00 11/21/17 10:37 11/21/17 10:37 11/21/17 10:37 Oxygen Flow Rate (L/min) 2 Oxygen Delivery Method Room Air Weight: 58.1 kg Intake and Output for Last 24 Hours 11/19/17 11/20/17 11/21/17 23:59 23:59 23:59 Intake Total 1350 / 1350 1320 / 1320 120 / 120 Balance 1350 / 1350 1320 / 1320 120 / 120 General: Healthy Appearing, Awake, Alert, Oriented x 3, No Acute Distress Oral: Moist Mucosa Neck: No JVD Lungs: Clear to auscultation Cardiovascular: Irregular Rhythm, Normal S1, Normal S2, No Murmurs, No Rubs Abdomen: Bowel Sounds Present, Soft Neurological: No Focal Motor or Sensory Deficit, CN II-XII Intact Psych/Mental Status: Appropriate 11/20/17 12:50: Troponin I 8.95 H* 11/20/17 17:54: Sodium 141, Potassium 4.3, Chloride 109 H, Carbon Dioxide 21.0, Anion Gap 11, BUN 28 H, Creatinine 1.28, Est GFR (MDRD) Af Amer 75, Est GFR ( MDRD) Non-Af 62, BUN/Creatinine Ratio 21.9 H, Glucose 117 H, Calcium 8.8, Magnesium 2.1 11/21/17 05:50: Sodium 140, Potassium 4.4, Chloride 106, Carbon Dioxide 27.0, Anion Gap 7, BUN 24 H, Creatinine 1.15, Est GFR (MDRD) Af Amer 84, Est GFR (MDRD ) Non-Af 70, BUN/Creatinine Ratio 20.9 H, Glucose 135 H, Calcium 8.7 Rhythm: Atrial fibrillation. Run of nonsustained ventricular tachycardia last night. Assessment/Plan 1. Non-ST elevation myocardial infarction. 100% distal right posterior lateral ventricular branch. Small vessel. Continue medical treatment. Some post infarct angina. Started on Ranexa. Patient on aspirin. Also on Xarelto for his atrial fibrillation. Will discontinue Plavix. 2. CAD. 60-70% mid RCA with negative IFR. Medical management. Stent to LAD patent 3. LV systolic dysfunction. Likely nonischemic. EF 35% on left ventriculography and 39% on echocardiogram. 4. Resistant hypertension. Controlled. 5. Permanent atrial fibrillation. On Xarelto. Patient has been on Xarelto prior to admission to the hospital. Will defer to patient's primary news commentator Dr. Pérez regarding continuing with Xarelto or switching to warfarin for his thromboembolic risk. Continue Xarelto meanwhile. 6. COPD 7. History of peripheral arterial disease 8. History of mitral valve repair surgery 9. History of dyslipidemia 10. Nicotine dependence. Counseled to quit 11. Discomfort this morning unlikely to be cardiac. Atypical. Troponin showing downward trend. Start on proton pump inhibitor for possible gastritis 12. Nonsustained ventricular tachycardia. On beta blockers. Approved for LifeVest this morning. Further follow-up as per Dr. Pérez 13. Hyperglycemia. Manage as per internal medicine/hospitalist 14. History of marijuana abuse. Counseled to quit Patient wishes to continue following with Dr. Pérez. Recommend follow-up in his office in 1-2 weeks time after discharge. May discharge home this afternoon from cardiology standpoint after LifeVest is fitted.
--- NOTE | 2017-11-21 13:53 | PN_ITS ---
Subjective: Still with chest pain that began 2 hours ago. Patient stated that his chest pain did get better last night but then only to come back again this morning. Vitals/I&O's: Vital Signs Temp Pulse Resp BP Pulse Ox 36.8 C 59 L 18 109/71 97 11/21/17 10:37 11/21/17 11:00 11/21/17 10:37 11/21/17 10:37 11/21/17 10:37 Oxygen Flow Rate (L/min) 2 Oxygen Delivery Method Room Air Weight: 58.1 kg Intake and Output for Last 24 Hours 11/19/17 11/20/17 11/21/17 23:59 23:59 23:59 Intake Total 1350 / 1350 1320 / 1320 480 / 480 Balance 1350 / 1350 1320 / 1320 480 / 480 General: Alert, Cooperative, No apparent distress HEENT: Atraumatic, Normocephalic Neck: No Nodes, Thyroid Normal Size and Texture Lungs: Clear to auscultation, Normal air movement, No rhonchi, No wheeze Cardiovascular: Regular rate, Regular Rhythm, Normal S1, Normal S2, No murmurs Abdomen: Bowel Sounds Present, Soft, Non Tender, Non-Distended, No Hepato- splenomegaly Extremities: No edema, No Calf Tenderness Psych/Mental Status: Flat Affect Laboratory Results 11/20/17 17:54: Sodium 141, Potassium 4.3, Chloride 109 H, Carbon Dioxide 21.0, Anion Gap 11, BUN 28 H, Creatinine 1.28, Estim Creat Clear Calc 51.86, Est GFR ( MDRD) Af Amer 75, Est GFR (MDRD) Non-Af 62, BUN/Creatinine Ratio 21.9 H, Glucose 117 H, Calcium 8.8, Magnesium 2.1 11/21/17 05:50: Sodium 140, Potassium 4.4, Chloride 106, Carbon Dioxide 27.0, Anion Gap 7, BUN 24 H, Creatinine 1.15, Estim Creat Clear Calc 57.72, Est GFR ( MDRD) Af Amer 84, Est GFR (MDRD) Non-Af 70, BUN/Creatinine Ratio 20.9 H, Glucose 135 H, Calcium 8.7 11/21/17 12:55: Troponin I 4.01 H* Current Medications Acetaminophen (Tylenol) 1,000 mg PO Q8H PRN PRN PRN Reason: PAIN Albuterol Sulfate (Ventolin Aerosols) 2.5 mg INHALATION Q2H PRN PRN PRN Reason: SHORTNESS OF BREATH Albuterol/Ipratropium (Duoneb) 3 ml INHALATION Q4HWA.RT [facility] Last Admin: 11/21/17 10:40 Dose: Not Given Aspirin (Ecotrin) 81 mg PO DAILY@0800 [facility] Last Admin: 11/21/17 08:12 Dose: 81 mg Atorvastatin Calcium (Lipitor) 40 mg PO QHS [facility] Last Admin: 11/20/17 21:38 Dose: 40 mg Atropine Sulfate () 0.5 mg IV UD PRN PRN Reason: HR <50 bpm Carvedilol (Coreg) 12.5 mg PO BID [facility] Last Admin: 11/21/17 08:06 Dose: 12.5 mg Clonidine (Catapres) 0.1 mg PO Q8 PRN PRN Reason: Hypertensive Emergency Last Admin: 11/19/17 12:12 Dose: 0.1 mg Hydrochlorothiazide (Hctz) 25 mg PO DAILY [facility] Last Admin: 11/21/17 08:07 Dose: 25 mg Hydromorphone HCl (Dilaudid) 1 mg IV Q4H PRN PRN PRN Reason: SEVERE PAIN (6-10/10) Lisinopril (Zestril) 20 mg PO DAILY [facility] Last Admin: 11/21/17 08:08 Dose: 20 mg Morphine Sulfate (Morphine) 2 mg IV Q4H PRN PRN PRN Reason: SEVERE PAIN (6-10/10) Last Admin: 11/21/17 10:33 Dose: 2 mg Nicotine (Nicoderm Cq (Pbkc)) 21 mg TRANSDERM. DAILY [facility] Last Admin: 11/21/17 08:07 Dose: 21 mg Nifedipine (Procardia Xl) 90 mg PO DAILY [facility] Last Admin: 11/21/17 08:07 Dose: 90 mg Oxycodone HCl (Oxyir) 5 mg PO Q4H PRN PRN PRN Reason: SEVERE PAIN (6-10/10) Last Admin: 11/21/17 08:00 Dose: 5 mg Pantoprazole Sodium (Protonix) 20 mg PO DAILY [facility] Ranolazine (Ranexa) 500 mg PO BID [facility] Last Admin: 11/21/17 08:07 Dose: 500 mg Rivaroxaban (Xarelto) 20 mg PO DAILY [facility] Last Admin: 11/21/17 08:07 Dose: 20 mg Sodium Chloride () 5 - 30 ml IV UD PRN PRN Reason: SALINE FLUSH Last Admin: 11/21/17 10:33 Dose: 10 ml Spironolactone (Aldactone) 25 mg PO DAILY [facility] Last Admin: 11/21/17 08:06 Dose: 25 mg Zolpidem Tartrate (Ambien (Generic)) 5 mg PO QHS PRN PRN PRN Reason: sleep Last Admin: 11/20/17 21:42 Dose: 5 mg Assessment/Plan 1. Non-ST elevation myocardial infarction * No stents were placed. * Medical management. * On carvedilol, aspirin, Plavix and lisinopril * Still chest pain but much improved. Will defer to cardiology in regards to further management of this. * Started on Ranexa today * Patient's troponins have been trending down. Despite the patient's ongoing chest pain. * Follow-up with Dr. Pérez. * We will add just a short course of oxycodone, I did tell the patient I am apprehensive about the patient's smoking marijuana and using this which she states that he is using for medicinal purposes. 2. Ischemic cardiomyopathy * Ejection fraction 35% on heart catheterization. 39% on echocardiogram. * Medical management * On Coreg, lisinopril and spironolactone. 3. Chronic atrial fibrillation * Anticoagulated with Xarelto * Rate controlled though does have some bradycardia at night. 4. Hypertension * Patient started on 25 mg of hydrochlorothiazide on November 18. * Lisinopril increased from 10-20 mg. Patient to receive first dose of 20 mg on November 19. * Procardia to be started on the sixth. * Would not further increase carvedilol at this time given some the bradycardia the patient demonstrates particularly at night. 5. VT prophylaxis: Patient is anticoagulated. 6. Disposition: * Patient will be changed over to progressive care unit status. Await further input from cardiology in regards to the patient's chest pain and if any additional medications would be warranted. Also await on patient's response to his antihypertensives. 7. Peripheral arterial disease * patient had an outpatient appointment with Dr. Reynoso scheduled for this week which obviously had to be canceled in light of his recent hospitalization. * Told patient that he would not have any surgery done here but said I would look into see if Dr. Reynoso would come this hospital. The vibrator operator has informed me that Dr. Reynoso does not come to this hospital. Patient will need follow-up with Dr. Reynoso as outpatient for further evaluation of his peripheral arterial disease.
--- NOTE | 2017-11-21 13:58 | PCM.DC ---
You will use the following diet at home:: Cardiac, Fluid restricted (specify 2000 mls, 1500 mls) - 1500 ml/day Your food should be the consistency of: Regular Your liquids should be the consistency of: Regular/Thin Call your doctor if you observe: Fever of 101 or Higher, Shortness of breath Allergies/Adverse Reactions: Allergies No Known Allergies Allergy (Verified 11/17/17 06:43) Medications to take at Discharge Cyclobenzaprine [Flexeril] 10 mg PO TID PRN PRN 11/17/17 Rivaroxaban [Xarelto] 20 mg PO DAILY 11/17/17 Trazodone HCl [Desyrel] 50 mg PO QHS 11/17/17 Acetaminophen [Tylenol] 1,000 mg PO Q8H PRN PRN tablet 11/21/17 Aspirin E.C. [Ecotrin] 81 mg PO DAILY@0800 tablet 11/21/17 Atorvastatin Calcium [Lipitor] 40 mg PO QHS #30 tab 11/21/17 Carvedilol [Coreg (Beta Keenan)] 12.5 mg PO BID #60 tab 11/21/17 Hydrochlorothiazide [Hctz] 25 mg PO DAILY #30 tab 11/21/17 Lisinopril [Zestril] 20 mg PO DAILY #30 tab 11/21/17 NIFEdipine [Procardia XL] 90 mg PO DAILY #30 tab 11/21/17 Oxycodone [Oxyir] 5 mg PO Q4H PRN PRN 3 Days #12 tablet 11/21/17 Pantoprazole Sodium [Protonix] 20 mg PO DAILY #30 tab 11/21/17 Ranolazine [Ranexa] 500 mg PO BID #60 tab 11/21/17 Spironolactone [Aldactone] 25 mg PO DAILY #30 tab 11/21/17 The following prescriptions were given: Oxycodone [Oxyir] 5 mg PO Q4H PRN PRN 3 Days #12 tablet PRN Reason: Severe Pain () Atorvastatin Calcium [Lipitor] 40 mg PO QHS #30 tab Hydrochlorothiazide [Hctz] 25 mg PO DAILY #30 tab Lisinopril [Zestril] 20 mg PO DAILY #30 tab NIFEdipine [Procardia XL] 90 mg PO DAILY #30 tab Pantoprazole Sodium [Protonix] 20 mg PO DAILY #30 tab Spironolactone [Aldactone] 25 mg PO DAILY #30 tab Carvedilol [Coreg (Beta Keenan)] 12.5 mg PO BID #60 tab Ranolazine [Ranexa] 500 mg PO BID #60 tab Primary Care Physician: Rian Metz MD [Primary Care Provider] - Within 2 Weeks Please Follow Up With: Kostas Segura MD When: 1-2 week Proposed Discharge Date: 11/21/17
--- NOTE | 2017-11-21 14:01 | PCM.DC.SUM ---
Discharge Date and Diagnosis - Problem List Patient Problems: Active and Suspected Problems Non-STEMI (non-ST elevated myocardial infarction) (Acute) Date of Admission: 11/17/17 Date of Discharge: 11/21/17 - Secondary Discharge Diagnosis Chronic Problems H/O mitral valve repair (Chronic) COPD (chronic obstructive pulmonary disease) (Chronic) Chronic back pain (Chronic) Hyperlipidemia (Chronic) Hypertension (Chronic) CAD (coronary artery disease) (Chronic) CVA (cerebral vascular accident) (Chronic) Atrial fibrillation (Chronic) Hospital Course and Treatment Imaging Results: Clinical Impression(s) from Imaging Studies Chest X-Ray 11/17/17 06:45 IMPRESSION: Moderate cardiomegaly. COPD. Electronically Signed: Hernando Chavez MD at 7:45 EST Tel , Service support , Operations: None Procedures: None Summary of Care Provided: The patient is a 56 year old Padmini Rios with chest pain. Patient found to have a non-ST patient myocardial infarction troponins went as high as 33. Patient underwent a left heart catheterization on the fourth that showed a 67% mid RCA stented mid LAD was patent. Medical management was recommended by cardiology.. Patient was found an ejection fraction of 35%. Patient continued to have chest pain afterwards and patient had subsequent troponins that have shown it to be trending down despite the patient's chest pain.. Patient has no reproducible chest pain. Cardiology is recommended just medical management. Patient has been started on Ranexa. Patient has remained hemodynamically stable. The patient's low ejection fraction patient was fitted for a LifeVest. Patient will continue with his Ranexa have also ordered patient some oxycodone, very short supply. I did express concern to the patient about his utilizing medical marijuana which she brushes off is being for medicinal purposes. The patient has remained hemodynamically stable and is otherwise stable for discharge. Patient states that he will follow-up with his regular brass and wind instrument repairer, Dr. Pérez. 1. Non-ST elevation myocardial infarction No stents were placed. Medical management. On carvedilol, aspirin, Plavix and lisinopril Still chest pain but much improved. Will defer to cardiology in regards to further management of this. Started on Ranexa today Patient's troponins have been trending down. Despite the patient's ongoing chest pain. Follow-up with Dr. Pérez. We will add just a short course of oxycodone, I did tell the patient I am apprehensive about the patient's smoking marijuana and using this which she states that he is using for medicinal purposes. 2. Ischemic cardiomyopathy Ejection fraction 35% on heart catheterization. 39% on echocardiogram. Medical management On Coreg, lisinopril and spironolactone. 3. Chronic atrial fibrillation Anticoagulated with Xarelto Rate controlled though does have some bradycardia at night. 4. Hypertension Patient started on 25 mg of hydrochlorothiazide on November 18. Lisinopril increased from 10-20 mg. Patient to receive first dose of 20 mg on November 19. Procardia to be started on the . Would not further increase carvedilol at this time given some the bradycardia the patient demonstrates particularly at night. 5. Peripheral arterial disease patient had an outpatient appointment with Dr. Reynoso scheduled for this week which obviously had to be canceled in light of his recent hospitalization. Told patient that he would not have any surgery done here but said I would look into see if Dr. Reynoso would come this hospital. The cold water machine operator has informed me that Dr. Reynoso does not come to this hospital. Patient will need follow-up with Dr. Reynoso as outpatient for further evaluation of his peripheral arterial disease.[] Discharge Diet: 6 Cup Fluid Restriction, 2000 mg Sodium Diet Discharge Activity: Return to Normal Activity Call your doctor if you observe: Fever of 101 or Higher, Shortness of breath Home Medications: Medications to take at Discharge Cyclobenzaprine [Flexeril] 10 mg PO TID PRN PRN 11/17/17 Rivaroxaban [Xarelto] 20 mg PO DAILY 11/17/17 Trazodone HCl [Desyrel] 50 mg PO QHS 11/17/17 Acetaminophen [Tylenol] 1,000 mg PO Q8H PRN PRN tablet 11/21/17 Aspirin E.C. [Ecotrin] 81 mg PO DAILY@0800 tablet 11/21/17 Atorvastatin Calcium [Lipitor] 40 mg PO QHS #30 tab 11/21/17 Carvedilol [Coreg (Beta Keenan)] 12.5 mg PO BID #60 tab 11/21/17 Hydrochlorothiazide [Hctz] 25 mg PO DAILY #30 tab 11/21/17 Lisinopril [Zestril] 20 mg PO DAILY #30 tab 11/21/17 NIFEdipine [Procardia XL] 90 mg PO DAILY #30 tab 11/21/17 Oxycodone [Oxyir] 5 mg PO Q4H PRN PRN 3 Days #12 tablet 11/21/17 Pantoprazole Sodium [Protonix] 20 mg PO DAILY #30 tab 11/21/17 Ranolazine [Ranexa] 500 mg PO BID #60 tab 11/21/17 Spironolactone [Aldactone] 25 mg PO DAILY #30 tab 11/21/17 Following Prescrptions Were Given to Patient: Oxycodone [Oxyir] 5 mg PO Q4H PRN PRN 3 Days #12 tablet PRN Reason: Severe Pain (-06/25) Atorvastatin Calcium [Lipitor] 40 mg PO QHS #30 tab Hydrochlorothiazide [Hctz] 25 mg PO DAILY #30 tab Lisinopril [Zestril] 20 mg PO DAILY #30 tab NIFEdipine [Procardia XL] 90 mg PO DAILY #30 tab Pantoprazole Sodium [Protonix] 20 mg PO DAILY #30 tab Spironolactone [Aldactone] 25 mg PO DAILY #30 tab Carvedilol [Coreg (Beta Keenan)] 12.5 mg PO BID #60 tab Ranolazine [Ranexa] 500 mg PO BID #60 tab Primary Care Physician: Rian Metz MD [Primary Care Provider] - Within 2 Weeks Please Follow Up With: Kostas Segura MD When: 1-2 week Please Follow Up With: Edgardo When: 1-2 weeks Disposition: Home Minutes spent on discharge:: 35 Patient Condition:: Fair Meaningful Use Info Meaningful Use Diagnoses (Choose all that apply): AMI - AMI Aspirin given w/in 24hrs of arrival?: Yes ASA at discharge?: Yes Statins at discharge?: Yes Mehrdad/ARB at discharge?: Yes Beta Keenan at discharge?: Yes Done w/ Acute [place] measure.: Yes Code Visit Inpatient E&M: 82246 Disch Hosp
--- NOTE | 2017-11-21 14:07 | DS.PCM_ITS ---
Discharge Date and Diagnosis - Problem List Patient Problems: Active and Suspected Problems Non-STEMI (non-ST elevated myocardial infarction) (Acute) Date of Admission: 11/17/17 Date of Discharge: 11/21/17 - Secondary Discharge Diagnosis Chronic Problems H/O mitral valve repair (Chronic) COPD (chronic obstructive pulmonary disease) (Chronic) Chronic back pain (Chronic) Hyperlipidemia (Chronic) Hypertension (Chronic) CAD (coronary artery disease) (Chronic) CVA (cerebral vascular accident) (Chronic) Atrial fibrillation (Chronic) Hospital Course and Treatment Imaging Results: Clinical Impression(s) from Imaging Studies Chest X-Ray 11/17/17 06:45 IMPRESSION: Moderate cardiomegaly. COPD. Electronically Signed: Hernando Chavez MD at 7:45 EST Tel , Service support , Operations: None Procedures: None Summary of Care Provided: The patient is a 56 year old Padmini Rios with chest pain. Patient found to have a non-ST patient myocardial infarction troponins went as high as 33. Patient underwent a left heart catheterization on the fourth that showed a 67% mid RCA stented mid LAD was patent. Medical management was recommended by cardiology.. Patient was found an ejection fraction of 35%. Patient continued to have chest pain afterwards and patient had subsequent troponins that have shown it to be trending down despite the patient's chest pain.. Patient has no reproducible chest pain. Cardiology is recommended just medical management. Patient has been started on Ranexa. Patient has remained hemodynamically stable. The patient's low ejection fraction patient was fitted for a LifeVest. Patient will continue with his Ranexa have also ordered patient some oxycodone , very short supply. I did express concern to the patient about his utilizing medical marijuana which she brushes off is being for medicinal purposes. The patient has remained hemodynamically stable and is otherwise stable for discharge. Patient states that he will follow-up with his regular cementer hand , Dr. Pérez. 1. Non-ST elevation myocardial infarction * No stents were placed. * Medical management. * On carvedilol, aspirin, Plavix and lisinopril * Still chest pain but much improved. Will defer to cardiology in regards to further management of this. * Started on Ranexa today * Patient's troponins have been trending down. Despite the patient's ongoing chest pain. * Follow-up with Dr. Pérez. * We will add just a short course of oxycodone, I did tell the patient I am apprehensive about the patient's smoking marijuana and using this which she states that he is using for medicinal purposes. 2. Ischemic cardiomyopathy * Ejection fraction 35% on heart catheterization. 39% on echocardiogram. * Medical management * On Coreg, lisinopril and spironolactone. 3. Chronic atrial fibrillation * Anticoagulated with Xarelto * Rate controlled though does have some bradycardia at night. 4. Hypertension * Patient started on 25 mg of hydrochlorothiazide on November 18. * Lisinopril increased from 10-20 mg. Patient to receive first dose of 20 mg on November 19. * Procardia to be started on the . * Would not further increase carvedilol at this time given some the bradycardia the patient demonstrates particularly at night. 5. Peripheral arterial disease * patient had an outpatient appointment with Dr. Reynoso scheduled for this week which obviously had to be canceled in light of his recent hospitalization. * Told patient that he would not have any surgery done here but said I would look into see if Dr. Reynoso would come this hospital. The nuclear control operator has informed me that Dr. Reynoso does not come to this hospital. Patient will need follow-up with Dr. Reynoso as outpatient for further evaluation of his peripheral arterial disease.[] Discharge Diet: 6 Cup Fluid Restriction, 2000 mg Sodium Diet Discharge Activity: Return to Normal Activity Call your doctor if you observe: Fever of 101 or Higher, Shortness of breath Home Medications: Medications to take at Discharge Cyclobenzaprine [Flexeril] 10 mg PO TID PRN PRN 11/17/17 Rivaroxaban [Xarelto] 20 mg PO DAILY 11/17/17 Trazodone HCl [Desyrel] 50 mg PO QHS 11/17/17 Acetaminophen [Tylenol] 1,000 mg PO Q8H PRN PRN tablet 11/21/17 Aspirin E.C. [Ecotrin] 81 mg PO DAILY@0800 tablet 11/21/17 Atorvastatin Calcium [Lipitor] 40 mg PO QHS #30 tab 11/21/17 Carvedilol [Coreg (Beta Keenan)] 12.5 mg PO BID #60 tab 11/21/17 Hydrochlorothiazide [Hctz] 25 mg PO DAILY #30 tab 11/21/17 Lisinopril [Zestril] 20 mg PO DAILY #30 tab 11/21/17 NIFEdipine [Procardia XL] 90 mg PO DAILY #30 tab 11/21/17 Oxycodone [Oxyir] 5 mg PO Q4H PRN PRN 3 Days #12 tablet 11/21/17 Pantoprazole Sodium [Protonix] 20 mg PO DAILY #30 tab 11/21/17 Ranolazine [Ranexa] 500 mg PO BID #60 tab 11/21/17 Spironolactone [Aldactone] 25 mg PO DAILY #30 tab 11/21/17 Following Prescrptions Were Given to Patient: Oxycodone [Oxyir] 5 mg PO Q4H PRN PRN 3 Days #12 tablet PRN Reason: Severe Pain (-06/25) Atorvastatin Calcium [Lipitor] 40 mg PO QHS #30 tab Hydrochlorothiazide [Hctz] 25 mg PO DAILY #30 tab Lisinopril [Zestril] 20 mg PO DAILY #30 tab NIFEdipine [Procardia XL] 90 mg PO DAILY #30 tab Pantoprazole Sodium [Protonix] 20 mg PO DAILY #30 tab Spironolactone [Aldactone] 25 mg PO DAILY #30 tab Carvedilol [Coreg (Beta Keenan)] 12.5 mg PO BID #60 tab Ranolazine [Ranexa] 500 mg PO BID #60 tab Primary Care Physician: Rian Metz MD [Primary Care Provider] - Within 2 Weeks Please Follow Up With: Kostas Segura MD When: 1-2 week Please Follow Up With: Edgardo When: 1-2 weeks Disposition: Home Minutes spent on discharge:: 35 Patient Condition:: Fair Meaningful Use Info Meaningful Use Diagnoses (Choose all that apply): AMI - AMI Aspirin given w/in 24hrs of arrival?: Yes ASA at discharge?: Yes Statins at discharge?: Yes Mehrdad/ARB at discharge?: Yes Beta Keenan at discharge?: Yes Done w/ Acute [place] measure.: Yes Code Visit Inpatient E&M: [id number] Disch Hosp
[2017-11-21] MEDS: Pantoprazole Sodium 20 MG Tablet PO (14:17)
--- NOTE | 2017-11-21 19:54 | NURSING ---
THE [employer] METAL FABRICATING SUPERVISOR BROUGHT A LIFE VEST FOR THE PATIENT SO HE COULD BE DISCHARGED, HOWEVER, THE LIFE VEST WAS NOT WORKING AND NEEDED NEW PARTS. THE REP WAS UNABLE TO GET A NEW VEST AT THIS TIME AND THE PATIENT WAS VERY UPSET AND WANTED TO LEAVE AMA. DR BARBER WAS NOTIFIED OF THIS. RISKS OF LEAVING AMA WAS DISCUSSED WITH THE PATIENT BUT THE PATIENT WAS ADAMANT ABOUT LEAVING TONIGHT SO HE SIGNED THE AMA PAPERS AND LEFT AMA. THE LIFE VE[employer] REP SAID A NEW LIFE VEST WOULD BE DELIVERED TO HIS HOUSE TOMORROW.
--- NOTE | 2017-11-21 20:52 | PCM.PN.BLA ---
Progress Note The charge nurse of PCU called me and informed me that the claims service representative of the [employer] company came to the patient's room and he put in a LifeVest but it was not working. The patient was very upset because he wants to go home and this is according to the charge nurse. I told her that I would notify the hospitalist who was taking care of the patient tomorrow morning. I am not aware that the patient left the hospital AGAINST MEDICAL ADVICE. I was not notified that he is leaving AMA but I am aware that he is upset because the LifeVest did not work.
--- NOTE | 2017-11-21 20:55 | PN_ITS ---
Progress Note The charge nurse of PCU called me and informed me that the electronics parts sales representative of the [employer] company came to the patient's room and he put in a LifeVest but it was not working. The patient was very upset because he wants to go home and this is according to the charge nurse. I told her that I would notify the hospitalist who was taking care of the patient tomorrow morning. I am not aware that the patient left the hospital AGAINST MEDICAL ADVICE. I was not notified that he is leaving AMA but I am aware that he is upset because the LifeVest did not work.
--- NOTE | 2017-11-21 20:58 | NURSING ---
DR TOVARAH AWARE AT THIS TIME THAT THE PATIENT LEFT AGAINST MEDICAL ADVICE.
== END 2017-11-21 19:45 | disposition left against medical advice (07) | DRG 121 ==
LOC: ED 08:54 → PCU 09:09 → ICU 11-18 00:01 → PCU 11-20 07:52
PROVIDERS: Emergency Medicine; Internal Medicine Cardiovascular Disease; Nurse Practitioner Family; Admitting Provider Internal Medicine; Emergency Provider Emergency Medicine; Family Provider Family Medicine; PCP Family Medicine
DX: I21.4 Non-ST elevation (NSTEMI) myocardial infarction (principal); I48.2 Chronic atrial fibrillation; I73.9 Peripheral vascular disease, unspecified; I23.7 Postinfarction angina; J44.9 Chronic obstructive pulmonary disease, unspecified; I25.2 Old myocardial infarction; Z95.5 Presence of coronary angioplasty implant and graft; Z79.02 Long term (current) use of antithrombotics/antiplatelets; E78.5 Hyperlipidemia, unspecified; F17.210 Nicotine dependence, cigarettes, uncomplicated; M54.9 Dorsalgia, unspecified; G89.29 Other chronic pain; Z86.73 Personal history of transient ischemic attack (TIA), and cerebral infarction without residual deficits; I10 Essential (primary) hypertension; I25.5 Ischemic cardiomyopathy; I25.118 Atherosclerotic heart disease of native coronary artery with other forms of angina pectoris; R63.4 Abnormal weight loss; Z68.1 Body mass index [BMI] 19.9 or less, adult
CPT/HCPCS: 36415; 71045; 80048; 80061; 80076; 80307; 83735; 84443; 84484; 85025; 85027; 85347; 85610; 87641; 93005; 93306; 93458; 93571; 93975; 94640; 99152; 99153; 99285; 99406; J3010; J7030; Q9967; A4216; C1769; C1894